=== PATIENT | female | born 1960 | race Caucasian/White ===

== ENCOUNTER 2022-12-14 09:34 | Emergency (ER) | payer MEDICARE, SELFPAY ==
[2022-12-14] VITALS (55 sets, daily range): BP systolic 158–198; BP diastolic 72–112; PULSE 90–117; RESP 16–36; O2SAT 90–98
--- NOTE | 2022-12-14 09:30 | DI.RAD_ITS ---
Exam(s) XR PORTABLE CHEST AP EXAM: XR PORTABLE CHEST AP CLINICAL HISTORY: SOB, PUI, Chest pain TECHNIQUE: 2D digital imaging was performed of the chest. One image was obtained. An AP view was ob tained. COMPARISON: No exams were available for comparison FINDINGS: MEDIASTINUM: Normal. HEART: Normal. PULMONARY VASCULATURE: Normal. LUNGS: There are bilateral basilar opacities. PLEURAL SPACE: No pneumothorax. Question of small bilateral pleural effusions. BONE:Within normal limits for the patient's age. OTHER FINDINGS:Normal. IMPRESSION: 1. Bilateral basilar opacities which may represent atelectasis or pneumonia. 2. Question of small bilateral pleural effusions. DATA REPOSITORY: RADIATION DOSE DELIVERED:
--- NOTE | 2022-12-14 09:30 | RT.EKG_ITS ---
APPROVED REPORT Exam: Resting ECG Reason for Exam: SOB Patient Location: E HR:116 bpm ECG Measurements Heart Rate 116 AXIS GA 149 P 72 QRSd 82 QRS 74 QT 333 T [id number] QTc 464 Conclusion Sinus tachycardia...rate> 99 Low voltage, precordial leads...precordial leads <1.0mV Nonspecific T abnormalities, lateral leads...T <-0.10mV, I aVL V5 V6
--- NOTE | 2022-12-14 09:45 | DI.CT_ITS ---
Exam(s) CT CHEST PE CTA EXAM: CT CHEST PE CTA CLINICAL HISTORY: Tachycardia, SOB, leg swelling. TECHNIQUE: Imaging Protocol: Axial CT angiography was performed with multi-slice acquisition and mu lti-planar and/or 3D reconstructions. CONTRAST MATERIAL: Intravenous: Omnipaque 350 contrast volume:100 mL COMPARISON: CR,XR XR PORTABLE CHEST AP from 12/14/2022 FINDINGS: The examination is limited due to patient motion artifact. Tracheobronchial tree: Patent where visualized. Pulmonary parenchyma: There are moderate bilateral pleural effusions and subjacent infiltrates in the lower lobes which may represent atelectasis or pneumonia. No architectural distortion. Pulmonary Arteries: No pulmonary embolus is seen to the level of the segmental pulmonary arteries. P atient motion artifact limits evaluation of the subsegmental pulmonary arteries. Mediastinum and Alisha: No dominant adenopathy or fluid collection. The esophagus is unremarkable. Visualized thyroid gland: Unremarkable. Pleura: No pneumothorax. Heart: The heart is not dilated. No coronary artery calcifications are seen. No pericardial effusion. Aorta: Thoracic aorta non-dilated. No evidence of dissection. Mild atherosclerosis. Upper abdomen: Unremarkable. Soft tissues: There is a well-circumscribed 1.7 cm soft tissue nodule in the subcutaneous tissues in the anterior chest wall. Bones: Within normal limits for the patient's age.Postsurgical changes are seen in the right humerus. IMPRESSION: 1. No evidence of pulmonary embolism, thoracic aortic dissection or aneurysm. 2. Moderate bilateral pleural effusions and basilar infiltrates which may represent atelectasis or pn eumonia. RADIATION DOSE DELIVERED: 692.83mGy.cm Total DLP DATA REPOSITORY: All CT scans at this facility are submitted to the National Radiology Data Registry (NRDR) Dose Index Registry (DIR) with the [employer] (ACR). RADIATION OPTIMIZATION: All CT scans at this facility use at least one of these dose optimization te chniques: automated exposure control; mA and/or kV adjustment per patient size (includes targeted exa ms where dose is matched to clinical indication); or iterative reconstruction.
--- NOTE | 2022-12-14 09:45 | W.ED.GENAD ---
Discharge Plan Disposition Patient Disposition: Transfer-Acute Inpatient Care Specific Acute Inpt Facility: [facility] Condition: Serious Discharge Details Clinical Impression: Non-ST elevation [place] (NSTEMI), CHF exacerbation, Bilateral pleural effusion Primary Care Provider: Amee,Local ED Provider: Terrence Gonzalez Medical Decision Making <Wen Sexton NP - Last Filed: 12/14/22 16:35> 62-year-old female presents to the ER via EMS with a chief complaint of bilateral lower extremity edema, shortness of breath and rectal pain. She reports that she has not taken her normal medications for approximately 3 months she is new to the area and does not have a PCP appointment till March. She does not normally wear oxygen at home. She does have a past medical history of CHF diabetes mellitus. Work-up ordered including CBC CMP serial troponins, proBNP due to leg swelling history of CHF, CT chest rule out PE pending labs. 0950: Placed on room air she is satting 93% at this time. 1008: O2 sat 93% heart rate 106. 1042: Critical troponin came back at 78, white blood cells 11.04 absolute neutrophils 8.64, glucose 175 proBNP 2502. COVID is pending at this time. Patient is in CT Aspirin 324 mg ordered 20 mg Lasix IV FRANCES's. Will consider Dutta. Dutta ordered, metoprolol 2.5 mg IV ordered, sublingual nitro 0.4 mg x 3 as needed pain and vital signs, patient placed back on 2 L nasal cannula. Repeat troponin and EKG will repeat now. 1237: [facility] [place] consult with cardiology. I did discuss admission with patient who verbalizes understanding. Repeat EKG shows no change from previous we will fax [place] [facility] [place] 1316: Repeat troponin 96 will order heparin drip for ACS protocol. Awaiting cardiology consult at [facility] [place] 1333: Upon patient re-evaluation patient is complaining of 4 out of 10 chest pressure she reports that her breathing is somewhat better after the Lasix she does have a liter of urine out in the Dutta. I did instruct the wait staff to give another sublingual Nitro. 1 g acetaminophen IV piggyback ordered. For headache. 1352: Dr. Rivera with [facility] [place] [place], they agree to accept patient for transfer. Accepting physician Dr. Tom, they recommend Plavix 600mg PO and Nitro gtt at 10mcg/min. Orders placed. Will discuss plan of care with patient. Patient verbalized understanding is in agreement with the transfer to [facility] [place] Bed assignment received EMTALA form filled out. Nitro is infusing without difficulty, heparin drip also infusing without difficulty. Care is to be handed off to oncoming provider Brandon Gonzalez pending transfer [place] [facility] [place] At the time of this dictation patient is in hemodynamically stable condition alert and oriented. She is complaining of a headache. This text was generated using [employer] system, please disregard any oddities of phrase or misspellings. Medical Records Medical records reviewed: Yes I reviewed the patient's medical records. Imaging Data Radiologic Study: Imaging: CT Scan Radiologist's impression: COMPARISON: CR XR PORTABLE CHEST AP 12/14/2022 10:25 AM FINDINGS: Tubes, catheters and devices: Surgical device in the right humeral head Pulmonary arteries: No pulmonary embolus in the main pulmonary arteries. Aorta: Unremarkable. No aortic aneurysm. No aortic dissection. Lungs: Opacities in the lower lobes may represent atelectasis or pneumonia.. Pleural spaces: Moderate bilateral pleural effusions. Heart: Unremarkable. No cardiomegaly. No pericardial effusion. Lymph nodes: Unremarkable. No enlarged lymph nodes. Bones/joints: Unremarkable. No acute fracture. Soft tissues: 14 mm soft tissue nodule in the subcutaneous fat anteriorly in the midline series 4, image 20 IMPRESSION: 1. Moderate bilateral pleural effusions. 2. No pulmonary embolus in the main pulmonary arteries. 3. Opacities in the lower lobes may represent atelectasis or pneumonia.. Thank you for allowing us to participate in the care of your patient. Dictated and Authenticated by: Bety Martin MD Lab Data Lab results reviewed: Yes I reviewed the patient's lab results. Labs: 12/14/22 11:50 Blood Blood Culture - Pending 12/14/22 11:18 Blood Blood Culture - Pending Laboratory Tests Range/Units 12/14/22 12/14/22 12/14/22 09:58 09:58 09:58 WBC (4.4-10.8) 10^3/uL 11.04 H RBC (3.93-5.22) 10^6/uL 4.56 Hgb (11.2-15.7) g/dL 13.1 Hct (36.0-46.0) % 40.3 MCV (80-95) fL 88 MCH (27.0-33.0) pg 28.7 MCHC (32.0-36.0) % 32.5 RDW (11.7-14.6) % 15.1 H Plt Count (130-400) 10^3/uL 374 MPV (8.0-11.0) fL 9.6 Immature Gran % 0.5 Neutrophils % 78.3 Lymphocytes % 14.1 Monocytes % 4.4 Eosinophils % 2.2 Basophils % 0.5 Nucleated RBC % (0.0-0.3) % 0.0 Absolute Neutrophils (1.2-6.7) 10^3/uL 8.64 H Absolute Lymphocytes (1.2-3.4) 10^3/uL 1.56 Absolute Monocytes (0.1-0.8) 10^3/uL 0.49 Absolute Eosinophils (0.0-0.7) 10^3/uL 0.24 Absolute Basophils (0.0-0.2) 10^3/uL 0.06 PT (9.3-11.0) sec INR (0.9-1.1) APTT (21.5-31.9) sec VBG pH (7.31-7.41) 7.43 H VBG pCO2 (41-51) mmHg 38 L VBG pO2 mmHg 41 VBG HCO3 (23-28) mmol/L 25 VBG Total CO2 (24-29) mmol/L 23 L VBG O2 Saturation % 76 VBG Base Excess (-2-3) mmol/L 1 Sodium (136-145) mmol/L 141 Potassium (3.5-5.1) mmol/L 3.5 Chloride (98-107) mmol/L 104 Carbon Dioxide (21.0-32.0) mmol/L 25.7 Anion Gap (3-11) mmol/L 11.3 H BUN (7-18) mg/dL 11 Creatinine (0.55-1.02) mg/dL 0.9 Est GFR (CKD-EPI 2020) (mL/min/1.73m2) 72.73 Glucose (74-106) mg/dL 175 H Calcium (8.5-10.1) mg/dL 8.7 Total Bilirubin (0.2-1.0) mg/dL 0.5 AST (15-37) U/L 18 ALT (14-59) U/L 16 Alkaline Phosphatase (46-116) U/L 135 H Troponin I (<or=60) ng/L 78 H* NT-Pro-B Natriuret Pep (<300) pg/mL 2502 H Total Protein (6.4-8.2) g/dL 7.9 Albumin (3.4-5.0) g/dL 3.4 Urine Color (Yellow) Urine Clarity (Clear) Urine pH (5-8) Ur Specific [place] (1.005-1.025) Urine Protein (Negative) mg/dL Urine Ketones (Negative) mg/dL Urine Blood (Negative) Urine Nitrite (Negative) Urine Bilirubin (Negative) Urine Urobilinogen (Up to 0.2) mg/dL Ur Leukocyte Esterase (Negative) Urine RBC (0-2) HPF Urine WBC (0-5) HPF Ur Epithelial Cells (Negative) HPF Urine Crystals (Negative) HPF Urine Bacteria (Negative) HPF Urine Casts (Negative) LPF Urine Mucus (Negative) Ur Culture Indicated? Urine Glucose (Negative) mg/dL COVID-19 Source SARS-CoV-2 (PCR) (Negative) Range/Units 12/14/22 12/14/22 12/14/22 09:58 10:24 11:38 WBC (4.4-10.8) 10^3/uL RBC (3.93-5.22) 10^6/uL Hgb (11.2-15.7) g/dL Hct (36.0-46.0) % MCV (80-95) fL MCH (27.0-33.0) pg MCHC (32.0-36.0) % RDW (11.7-14.6) % Plt Count (130-400) 10^3/uL MPV (8.0-11.0) fL Immature Gran % Neutrophils % Lymphocytes % Monocytes % Eosinophils % Basophils % Nucleated RBC % (0.0-0.3) % Absolute Neutrophils (1.2-6.7) 10^3/uL Absolute Lymphocytes (1.2-3.4) 10^3/uL Absolute Monocytes (0.1-0.8) 10^3/uL Absolute Eosinophils (0.0-0.7) 10^3/uL Absolute Basophils (0.0-0.2) 10^3/uL PT (9.3-11.0) sec 9.9 INR (0.9-1.1) 1.0 APTT (21.5-31.9) sec 26.2 VBG pH (7.31-7.41) VBG pCO2 (41-51) mmHg VBG pO2 mmHg VBG HCO3 (23-28) mmol/L VBG Total CO2 (24-29) mmol/L VBG O2 Saturation % VBG Base Excess (-2-3) mmol/L Sodium (136-145) mmol/L Potassium (3.5-5.1) mmol/L Chloride (98-107) mmol/L Carbon Dioxide (21.0-32.0) mmol/L Anion Gap (3-11) mmol/L BUN (7-18) mg/dL Creatinine (0.55-1.02) mg/dL Est GFR (CKD-EPI 2020) (mL/min/1.73m2) Glucose (74-106) mg/dL Calcium (8.5-10.1) mg/dL Total Bilirubin (0.2-1.0) mg/dL AST (15-37) U/L ALT (14-59) U/L Alkaline Phosphatase (46-116) U/L Troponin I (<or=60) ng/L NT-Pro-B Natriuret Pep (<300) pg/mL Total Protein (6.4-8.2) g/dL Albumin (3.4-5.0) g/dL Urine Color (Yellow) Yellow Urine Clarity (Clear) Clear Urine pH (5-8) 7.0 Ur Specific [place] (1.005-1.025) 1.015 Urine Protein (Negative) mg/dL 100 H Urine Ketones (Negative) mg/dL 40 H Urine Blood (Negative) Trace-lysed H Urine Nitrite (Negative) Negative Urine Bilirubin (Negative) Negative Urine Urobilinogen (Up to 0.2) mg/dL 0.2 Ur Leukocyte Esterase (Negative) Negative Urine RBC (0-2) HPF 5-10 H Urine WBC (0-5) HPF 0-2 Ur Epithelial Cells (Negative) HPF Few Urine Crystals (Negative) HPF Negative Urine Bacteria (Negative) HPF Negative Urine Casts (Negative) LPF Negative Urine Mucus (Negative) Trace Ur Culture Indicated? No Urine Glucose (Negative) mg/dL Negative COVID-19 Source Nasal/Nares SARS-CoV-2 (PCR) (Negative) Negative Range/Units 12/14/22 12:40 WBC (4.4-10.8) 10^3/uL RBC (3.93-5.22) 10^6/uL Hgb (11.2-15.7) g/dL Hct (36.0-46.0) % MCV (80-95) fL MCH (27.0-33.0) pg MCHC (32.0-36.0) % RDW (11.7-14.6) % Plt Count (130-400) 10^3/uL MPV (8.0-11.0) fL Immature Gran % Neutrophils % Lymphocytes % Monocytes % Eosinophils % Basophils % Nucleated RBC % (0.0-0.3) % Absolute Neutrophils (1.2-6.7) 10^3/uL Absolute Lymphocytes (1.2-3.4) 10^3/uL Absolute Monocytes (0.1-0.8) 10^3/uL Absolute Eosinophils (0.0-0.7) 10^3/uL Absolute Basophils (0.0-0.2) 10^3/uL PT (9.3-11.0) sec INR (0.9-1.1) APTT (21.5-31.9) sec VBG pH (7.31-7.41) VBG pCO2 (41-51) mmHg VBG pO2 mmHg VBG HCO3 (23-28) mmol/L VBG Total CO2 (24-29) mmol/L VBG O2 Saturation % VBG Base Excess (-2-3) mmol/L Sodium (136-145) mmol/L Potassium (3.5-5.1) mmol/L Chloride (98-107) mmol/L Carbon Dioxide (21.0-32.0) mmol/L Anion Gap (3-11) mmol/L BUN (7-18) mg/dL Creatinine (0.55-1.02) mg/dL Est GFR (CKD-EPI 2020) (mL/min/1.73m2) Glucose (74-106) mg/dL Calcium (8.5-10.1) mg/dL Total Bilirubin (0.2-1.0) mg/dL AST (15-37) U/L ALT (14-59) U/L Alkaline Phosphatase (46-116) U/L Troponin I (<or=60) ng/L 96 H* NT-Pro-B Natriuret Pep (<300) pg/mL Total Protein (6.4-8.2) g/dL Albumin (3.4-5.0) g/dL Urine Color (Yellow) Urine Clarity (Clear) Urine pH (5-8) Ur Specific [place] (1.005-1.025) Urine Protein (Negative) mg/dL Urine Ketones (Negative) mg/dL Urine Blood (Negative) Urine Nitrite (Negative) Urine Bilirubin (Negative) Urine Urobilinogen (Up to 0.2) mg/dL Ur Leukocyte Esterase (Negative) Urine RBC (0-2) HPF Urine WBC (0-5) HPF Ur Epithelial Cells (Negative) HPF Urine Crystals (Negative) HPF Urine Bacteria (Negative) HPF Urine Casts (Negative) LPF Urine Mucus (Negative) Ur Culture Indicated? Urine Glucose (Negative) mg/dL COVID-19 Source SARS-CoV-2 (PCR) (Negative) <Hussein Keating MD - Last Filed: 12/14/22 18:36> Date: 12/14/22 Time: 14:21 Note: Patient seen, examined, and discussed with NORA Sexton. I agree with treatment plan as discussed/documented. EKG was reviewed and interpreted by me: Please see report. Patient with NSTEMI and CHF. Chest pain improved with sublingual nitroglycerin. Plan to treat with heparin drip and nitroglycerin infusion. NORA Sexton arranging for [place] [facility] [place] and [place]. HPI <Wen Sexton NP - Last Filed: 12/14/22 16:35> General Mode of arrival: EMS. Date/Time Provider Initiated Documentation: 12/14/22 09:43. Limitations to Documentation: no limitations. Information obtained by: patient, EMS, RN notes reviewed and old records reviewed. HPI Narrative: 62-year-old female presents to the ER via EMS with a chief complaint of bilateral lower extremity edema, shortness of breath and rectal pain. She reports that she has not taken her normal medications for approximately 3 months she is new to the area and does not have a PCP appointment till March. She does not normally wear oxygen at home. She does have a past medical history of CHF diabetes mellitus. Related Data Allergies Allergy/AdvReac Type Severity Reaction Status Date / Time Penicillins Allergy Intermediate Hives Unverified 12/14/22 09:44 codeine Allergy Unknown Unverified 12/14/22 09:44 divalproex sodium AdvReac Severe Agitation Unverified 12/14/22 09:44 [facility] General Stated Complaint: RespSymp KARINA: 3 Review of Systems <Wen Sexton NP - Last Filed: 12/14/22 16:35> All systems reviewed & are unremarkable except as noted in HPI and below Cardiovascular Cardiovascular: Reports chest pain, Reports leg edema, Reports dyspnea, Reports dyspnea on exertion and Reports orthopnea Respiratory Respiratory: Reports dyspnea and Reports dyspnea on exertion Gastrointestinal Gastrointestinal: Denies abdominal pain, Denies diarrhea, Denies nausea and Denies vomiting PFSH <Wen Sexton NP - Last Filed: 12/14/22 16:35> All Active Problems (Updated 12/14/22 @ 16:35 by Wen Sexton NP) Non-ST elevation [place] (NSTEMI) (Acute) CHF exacerbation (Acute) Bilateral pleural effusion (Acute) Social History Smoking/Tobacco Use Status: Never Smoking risk assessment performed?: Yes Alcohol Intake: current Drug use: Never Substance use type: does not use Housing: house Do you feel safe at home: Yes Do you feel safe in your relationship?: Yes Exam <Wen Sexton NP - Last Filed: 12/14/22 16:35> Narrative Exam Narrative: Constitutional: Alert and oriented x3. Appears stated age. Obese body habitus. Head: Normocephalic, no trauma. Eyes: Pupils PERRL, Red reflex noted, EOM's intact. Eyelids symmetrical without lesions, discharge, or swelling. ENT: Bilateral TM's WNL, External ear normal to inspection, no mastoid TTP, swelling, or erythema, Nasal turbinates WNL, no nasal discharge. poor dentition, Posterior pharynx WNL, no exudate. Dry mucous membranes Chest: Tachycardia with occasional PVCs, EKG shows no STEMI Resp: Lungs diminished bilaterally, no wheezes, rales, or rhonchi. Abdomen: Soft, non-distended, Normoactive bowel sounds all 4 quads. Musculoskeletal: Unable to assess gait nonpitting edema noted to her lower extremities, she does have some sores noted to her left anterior leo Skin: Capillary refill less than 2 sec. Neurologic: Cranial nerves II-XII intact. Alert and oriented x 3. Motor: No deficits noted. Sensory: Intact bilaterally all 4 extremities. Reflexes: DTR's intact bilaterally.. Hematologic/Lymphatic: No ecchymosis, no lymphadenopathy. Course <Wen Sexton NP - Last Filed: 12/14/22 16:35> Vital Signs Vital signs: Vital Signs Pulse 117 H 12/14/22 09:37 Respiratory Rate 17 12/14/22 09:37 Blood Pressure 158/112 H 12/14/22 09:37 Pulse Oximetry 95 12/14/22 09:37 Pulse 117 H 12/14/22 09:37 Respiratory Rate 17 12/14/22 09:37 Blood Pressure 158/112 H 12/14/22 09:37 Blood Pressure Position Sitting 12/14/22 09:37 Pulse Oximetry 95 12/14/22 09:37 Oxygen Delivery Method Nasal Cannula 12/14/22 09:37 Oxygen Flow Rate 2 12/14/22 09:37 Pain Level 7 12/14/22 09:37 Critical Care Time <Wen Sexton NP - Last Filed: 12/14/22 16:35> Critical Care Time Critical Care Time: Yes Total Critical Care Time: 120 Attestation: I spent greater than 35 minutes addressing this patient's acute life threatening illness. This time was spent engaged in actions directly related to the patient's care. Failure to initiate these interventions would have likely resulted in clinically significant or life threatening deterioration in the patients condition. Sign Out <Wen Sexton NP - Last Filed: 12/14/22 16:35> Sign Out Data: Sign Out Comment: 62-year-old female with a history of CHF diabetes mellitus and CAD presents with shortness of breath, leg swelling and chest pain after not taking any of her normal medications for the last 3 months. She recently moved here from [place] was unable to [facility]. NSTEMI, on nitro drip at 10 mics per minute and heparin drip at 1000 units an hour. P[place] [facility] [place]. Last updated by Wen Sexton NP at 12/14/22 15:44
[2022-12-14 10:02] LABS: BE (Venous) 1 mmol/L (-2-3); HCO3 (Venous) 25 mmol/L (23-28); O2 Sat (Venous) 76 %; TCO2 (Venous) 23 mmol/L (24-29); pCO2 (Venous) 38 mmHg (41-51); pH (Venous) 7.43 (7.31-7.41); pO2 (Venous) 41 mmHg
[2022-12-14 10:06] LABS: Abs Immature Grans 0.05 10^3/uL (0.0-0.06); Absolute Basophil Count 0.06 10^3/uL (0.0-0.2); Absolute Eosinophil Count 0.24 10^3/uL (0.0-0.7); Absolute Lymphocyte Count 1.56 10^3/uL (1.2-3.4); Absolute Monocyte Count 0.49 10^3/uL (0.1-0.8); Absolute Neutrophil Count 8.64 10^3/uL (1.2-6.7); Basophils % 0.5; Eosinophils % 2.2; HCT 40.3 % (36.0-46.0); HGB 13.1 g/dL (11.2-15.7); Immature Grans % 0.5; Lymphocytes % 14.1; MCH 28.7 pg (27.0-33.0); MCHC 32.5 % (32.0-36.0); MCV 88 fL (80-95); MPV 9.6 fL (8.0-11.0); Monocytes % 4.4; Neutrophils % 78.3; Platelet Count 374 10^3/uL (130-400); RBC 4.56 10^6/uL (3.93-5.22); RDW 15.1 % (11.7-14.6); RDW-SD 48.1 fL; WBC 11.04 10^3/uL (4.4-10.8)
[2022-12-14 10:28] LABS: ALT 16 U/L (14-59); AST 18 U/L (15-37); Albumin 3.4 g/dL (3.4-5.0); Alkaline Phosphatase 135 U/L (46-116); Anion Gap 11.3 mmol/L (3-11); BUN 11 mg/dL (7-18); Bilirubin, Total 0.5 mg/dL (0.2-1.0); CO2 25.7 mmol/L (21.0-32.0); CREATININE 0.9 mg/dL (0.55-1.02); Calcium 8.7 mg/dL (8.5-10.1); Chloride 104 mmol/L (98-107); Estimated GFR 72.73 (mL/min/1.73m2); Glucose 175 mg/dL (74-106); NT-proBNP 2502 pg/mL (<300); Potassium 3.5 mmol/L (3.5-5.1); Sodium 141 mmol/L (136-145); Total Protein 7.9 g/dL (6.4-8.2)
[2022-12-14 10:30] LABS: Source Nasal/Nares
[2022-12-14 10:31] LABS: Troponin I 78 ng/L (<or=60)
--- NOTE | 2022-12-14 10:32 | DI.VRAD_ITS ---
PROCEDURE INFORMATION: Exam: XR Chest Exam date and time: 12/14/2022 10:25 AM Age: 62 years old Clinical indication: Shortness of breath and other: Chest pain TECHNIQUE: Imaging protocol: Radiologic exam of the chest. Views: 1 view. COMPARISON: No relevant prior studies available. FINDINGS: Lungs: Opacities in both bases may represent atelectasis or pneumonia.. Pleural spaces: There may be mild left pleural effusion.. Heart/Mediastinum: Unremarkable. No cardiomegaly. Bones/joints: Unremarkable. IMPRESSION: 1. Opacities in both bases may represent atelectasis or pneumonia.. 2. There may be mild left pleural effusion.. Dictated and Authenticated by: Bety Martin MD. Ordering:SHAJI Carver MD
[2022-12-14] MEDS: Normal Saline - Diluent 50 ML VIAL IJ (11:01)
[2022-12-14] MEDS: Omnipaque 350 MG/ML 100 ML BTL IJ (11:01)
[2022-12-14 11:05] LABS: COVID-19 PCR Negative (Negative)
[2022-12-14] MEDS: Furosemide 20 MG/2 ML VIAL IVP (11:11)
[2022-12-14] MEDS: Aspirin 81 MG CHEW 324 MG CH (11:11)
--- NOTE | 2022-12-14 11:22 | DI.VRAD_ITS ---
PROCEDURE INFORMATION: Exam: CTA Chest With Contrast Exam date and time: 12/14/2022 10:55 AM Age: 62 years old Clinical indication: Shortness of breath TECHNIQUE: Imaging protocol: Computed tomographic angiography of the chest with contrast. Exam focused on the arteries. 3D rendering (Not supervised by radiologist): MIP and/or 3D reconstructed images were created by the technologist. COMPARISON: CR XR PORTABLE CHEST AP 12/14/2022 10:25 AM FINDINGS: Tubes, catheters and devices: Surgical device in the right humeral head Pulmonary arteries: No pulmonary embolus in the main pulmonary arteries. Aorta: Unremarkable. No aortic aneurysm. No aortic dissection. Lungs: Opacities in the lower lobes may represent atelectasis or pneumonia.. Pleural spaces: Moderate bilateral pleural effusions. Heart: Unremarkable. No cardiomegaly. No pericardial effusion. Lymph nodes: Unremarkable. No enlarged lymph nodes. Bones/joints: Unremarkable. No acute fracture. Soft tissues: 14 mm soft tissue nodule in the subcutaneous fat anteriorly in the midline series 4, image 20 IMPRESSION: 1. Moderate bilateral pleural effusions. 2. No pulmonary embolus in the main pulmonary arteries. 3. Opacities in the lower lobes may represent atelectasis or pneumonia.. Dictated and Authenticated by: Bety Martin MD. Ordering:SHAJI Carver MD
[2022-12-14 11:44] LABS: PTT Activated 26.2 sec (21.5-31.9); Prothrombin Time 9.9 sec (9.3-11.0)
[2022-12-14 12:03] LABS: Bilirubin Negative (Negative); Blood Trace-lysed (Negative); Clarity Clear (Clear); Glucose Negative (Negative); Ketones 40 mg/dL (Negative); Leukocyte Esterase Negative (Negative); Nitrite Negative (Negative); Specific Gravity 1.015 (1.005-1.025); Urobilinogen 0.2 mg/dL (Up to 0.2)
[2022-12-14 12:14] LABS: Bacteria Negative HPF (Negative); C & S Indicated? No; Casts Negative LPF (Negative); Crystals Negative HPF (Negative); Epithelial Cells Few HPF (Negative); Mucus Trace (Negative); WBC 0-2 HPF (0-5)
--- NOTE | 2022-12-14 12:15 | RT.EKG_ITS ---
APPROVED REPORT Exam: Resting ECG Reason for Exam: Repeat Patient Location: E HR:102 bpm ECG Measurements Heart Rate 102 AXIS MS 156 P 51 QRSd 82 QRS 71 QT 404 T 46 QTc 527 Conclusion Sinus tachycardia...rate> 99 Low voltage, precordial leads...precordial leads <1.0mV Prolonged QT interval...QTc >500mS
[2022-12-14] MEDS: Metoprolol 5 MG/5 ML VIAL 2.5 MG IVP ×2 (12:21→17:53)
[2022-12-14] MEDS: nitroGLYcerin 0.4 MG TAB SL ×3 (12:31→13:40)
[2022-12-14 13:12] LABS: Troponin I 96 ng/L (<or=60)
[2022-12-14] MEDS: Heparin in 0.45% NaCl 25,000 UNIT/250 ML BAG 10 UNIT IV (13:52)
[2022-12-14] MEDS: ACETAMINOPHEN 1,000 MG/100 ML BTL 400 MG IVPB (13:54)
[2022-12-14] MEDS: nitroGLYcerin in D5W 50 MG/250 ML BTL IV (14:30)
[2022-12-14] MEDS: Normal Saline 1,000 ML 50 ML IV (14:31)
[2022-12-14] MEDS: Clopidogrel 300 MG TAB 600 MG PO (14:32)
[2022-12-14] MEDS: MORPHine 10 MG/ML VIAL 2 MG IVP (14:58)
--- NOTE | 2022-12-14 17:00 | DI.CT_ITS ---
Exam(s) CT HEAD WO EXAM: CT HEAD WO CLINICAL HISTORY: headache. TECHNIQUE: Imaging Protocol: Axial computed tomography images with coronal and sagittal reformatted images were created and reviewed COMPARISON: No exams were available for comparison FINDINGS: Ventricles and Extra axial spaces: Normal in size and morphology for the patient's age. Hemorrhage: None. Cerebral parenchyma: Normal. Midline shift: None. Brainstem/Cerebellum: Normal. Calvarium: Normal. Visualized Paranasal sinuses/Mastoids: The mucous retention cyst or polyp in the right maxillary sinu s. Soft Tissues: Unremarkable. IMPRESSION: No acute intracranial process. RADIATION DOSE DELIVERED: 724.53mGy.cm Total DLP DATA REPOSITORY: All CT scans at this facility are submitted to the National Radiology Data Registry (NRDR) Dose Index Registry (DIR) with the [employer] ([employer]). RADIATION OPTIMIZATION: All CT scans at this facility use at least one of these dose optimization te chniques: automated exposure control; mA and/or kV adjustment per patient size (includes targeted exa ms where dose is matched to clinical indication); or iterative reconstruction.
--- NOTE | 2022-12-14 17:14 | ED.PROG_ITS ---
Date of service: 12/14/22 Time of Service: 16:00 Medical Decision Making 1600-received signout from Meaghan Sexton NP and patient stable pending [place] [facility] Patient resting comfortably in bed at time of signout 1704-patient reported to nursing staff that she started having a worsening headache. Patient was a soft and shows no focal neurological findings but given that she is on heparin and complaining of headache with also note of pressure going up we will have the patient's CT scanning of head performed and will also have staff development coordinator rn increase nitro. 1745-reviewed CT imaging and I do not see any obvious intracranial bleed secondary to an anticoagulation. Nitro was increased to 50 mics but still not controlling patient's pressure so 2.5 mg of Lopressor was ordered. Also patient did receive small dose of Versed to help with CT imaging. Patient transferred with EMS and critical care transport nurse. Patient remained in stable condition with no significant signs of worsening at time of transfer. Lab Data Lab results reviewed: Yes I reviewed the patient's lab results. Sign Out Sign Out Data: Sign Out Comment: 62-year-old female with a history of CHF diabetes mellitus and CAD presents with shortness of breath, leg swelling and chest pain after not taking any of her normal medications for the last 3 months. She recently moved here from [place] state was unable to get [facility]. NSTEMI, on nitro drip at 10 mics per minute and heparin drip at 1000 units an hour. Pending transfer [place] [facility] [place]. Last updated by Wen Sexton NP at 12/14/22 15:44 Discharge Plan Disposition Patient Disposition: Transfer-Acute Inpatient Care Specific Acute In Facility: [facility] Condition: Serious Discharge Details Clinical Impression: Non-ST elevation [place] (NSTEMI), CHF exacerbation, Bilateral pleural effusion Primary Care Provider: Amee,Local ED Provider: Terrence Gonzalez Discharge Data Discharge Date/Time-TO BE ENTERED AT DEPARTURE: 12/14/22 18:10
[2022-12-14] MEDS: Midazolam 2 MG/2 ML VIAL 1 MG IVP (17:30)
--- NOTE | 2022-12-14 17:53 | DI.VRAD_ITS ---
PROCEDURE INFORMATION: Exam: CT Head Without Contrast Exam date and time: 12/14/2022 5:17 PM Age: 62 years old Clinical indication: Pain; Headache TECHNIQUE: Imaging protocol: Computed tomography of the head without contrast. COMPARISON: No relevant prior studies available. FINDINGS: Brain: Normal. No hemorrhage. Unremarkable white matter. No mass effect. Cerebral ventricles: No ventriculomegaly. Paranasal sinuses: Polyp or retention cyst in the right maxillary sinus Mastoid air cells: Visualized mastoid air cells are well aerated. Bones/joints: Unremarkable. No acute fracture. Soft tissues: Unremarkable. IMPRESSION: No acute intracranial hemorrhage Dictated and Authenticated by: Bety Martin MD. Ordering:VIDA Ocampo MD
--- NOTE | 2022-12-14 20:59 | NUR.NOTE ---
Nursing Note: 1744: This RN arrived to get report on patient and orders from David Gonzalez NP and Piyush Spencer RN to prepare for transport with [facility]'s. Pt sleepy but arousable and appropriate. Denies Chest pain and shortness of breath. C/O 10/10 headache; on Ntg and Heparin infusions; has received previous meds (SEE JUN). Pt moved to EMS stretcher and secured. VSS at start of transfer were HR 97, BP 175/97, RR 29, O2sat 94% on 2 Lpm via NC, Sinus rhythm on the monitor. Patient rested most of ride, occasional PVC's seen. Pt arrived [place] [facility] with little change, now feels nauseated and like headache is worsening. Report given to receiving team who will have accepting MD manage new orders. Last set of Vital signs before transfer: HR 99, BP 175/92, RR 30, O sat 93% on 2 lpm via NC.
--- NOTE | 2022-12-14 21:36 | NUR.NOTE ---
Nursing Note: this RN found Patient's glasses in room after patient DCed to [facility]. Glasses labeled and place in Lost and found in utility room
== END 2022-12-14 18:10 | disposition short-term general hospital (02) ==
PROVIDERS: Registered Nurse Emergency; Emergency Provider Nurse Practitioner Family
DX: I21.4 Non-ST elevation (NSTEMI) myocardial infarction (principal); I50.9 Heart failure, unspecified; J90 Pleural effusion, not elsewhere classified; E11.9 Type 2 diabetes mellitus without complications; I25.10 Atherosclerotic heart disease of native coronary artery without angina pectoris; R94.31 Abnormal electrocardiogram [ECG] [EKG]; Z91.148 Patient's other noncompliance with medication regimen for other reason; Z20.822 Contact with and (suspected) exposure to COVID-19
CPT/HCPCS: 36415; 71275; 80053; 82805; 87040; 87635; 93005; 96365; 96366; 96375; 96376; 99291; 70450; 71045; 81003; 81015; 83880; 84484; 85025; 85610; 85730; 93010; J0131; J1170; J1941; J2250; J2270; J3490

== ENCOUNTER 2023-02-06 04:14 | Outpatient (CLI) | payer MEDICARE, SELFPAY ==
[2023-02-06 10:43] LABS: ALT 17 U/L (14-59); AST 12 U/L (15-37); Albumin 3.8 g/dL (3.4-5.0); Alkaline Phosphatase 159 U/L (46-116); Anion Gap 8.3 mmol/L (3-11); BUN 26 mg/dL (7-18); Bilirubin, Total 0.2 mg/dL (0.2-1.0); CO2 29.7 mmol/L (21.0-32.0); CREATININE 1.2 mg/dL (0.55-1.02); Calcium 9.3 mg/dL (8.5-10.1); Calculated LDL 72 mg/dL (<100); Chloride 101 mmol/L (98-107); Cholesterol 187 mg/dL (<200); Glucose 163 mg/dL (74-106); HDL Cholesterol 46 mg/dL (40-60); Sodium 139 mmol/L (136-145); Total Protein 8.6 g/dL (6.4-8.2); Triglyceride 345 mg/dL (<150); Vitamin B12 382 pg/mL (193-986)
[2023-02-06 10:53] LABS: Vitamin D 25 Total 27.4 ng/mL (30-100)
== END 2023-02-06 04:15 | disposition home or self-care (01) ==
LOC: LOS 04:15
PROVIDERS: Visit Provider Nurse Practitioner Family
DX: I10 Essential (primary) hypertension (principal); Z51.81 Encounter for therapeutic drug level monitoring; E78.5 Hyperlipidemia, unspecified; I77.1 Stricture of artery; E11.9 Type 2 diabetes mellitus without complications
CPT/HCPCS: 36415; 80053; 80061; 82306; 82607

== ENCOUNTER 2023-03-04 16:53 | Outpatient (REF) | payer MEDICARE, SELFPAY ==
[2023-03-07 22:32] LABS: Desipramine, S 67 ng/mL (100-300)
== END 2023-03-04 16:54 | disposition home or self-care (01) ==
LOC: NCHCN 16:53
PROVIDERS: PCP Nurse Practitioner Family; Visit Provider Nurse Practitioner Psychiatric/Mental Health
DX: Z51.81 Encounter for therapeutic drug level monitoring (principal)
CPT/HCPCS: 80335

== ENCOUNTER 2023-03-25 14:10 | Outpatient (CLI) | payer MEDICARE, MEDICAID, SELFPAY ==
--- NOTE | 2023-03-25 13:45 | DI.RAD_ITS ---
Exam(s) XR SHOULDER RT COMPLETE 2+V EXAM: XR SHOULDER RT COMPLETE 2+V CLINICAL HISTORY: RIGHT SHOULDER PAIN. TECHNIQUE: 2D digital imaging was performed. Five views. COMPARISON: No exams were available for comparison FINDINGS: BONES: No acute fracture is present. No bony destructive lesion is seen. Metallic anchors in humeral head. Subchondral cysts and mild spurring at greater tuberosity. JOINTS: No dislocation present. Glenohumeral joint space is maintained. AC joint shows mild spurring. Spurring at the undersurface of the acromion. SOFT TISSUE: Normal. IMPRESSION: Postsurgical changes. Mild degenerative changes. DATA REPOSITORY: RADIATION DOSE DELIVERED:
== END 2023-03-25 14:11 | disposition home or self-care (01) ==
LOC: DIORS 14:10
PROVIDERS: PCP Nurse Practitioner Family; Referring Provider Nurse Practitioner Family; Visit Provider Student in an Organized Health Care Education/Training Program
DX: M25.511 Pain in right shoulder (principal); M75.101 Unspecified rotator cuff tear or rupture of right shoulder, not specified as traumatic
CPT/HCPCS: 99213; 73030

== ENCOUNTER 2023-03-25 14:33 | Outpatient (CLI) | payer MEDICARE, SELFPAY ==
[2023-03-25 15:01] LABS: Abs Immature Grans 0.05 10^3/uL (0.0-0.06); Absolute Basophil Count 0.06 10^3/uL (0.0-0.2); Absolute Eosinophil Count 0.41 10^3/uL (0.0-0.7); Absolute Lymphocyte Count 2.73 10^3/uL (1.2-3.4); Absolute Monocyte Count 0.81 10^3/uL (0.1-0.8); Absolute Neutrophil Count 6.53 10^3/uL (1.2-6.7); Basophils % 0.6; Eosinophils % 3.9; HGB 13.7 g/dL (11.2-15.7); Immature Grans % 0.5; Lymphocytes % 25.8; MCH 28.9 pg (27.0-33.0); MCHC 31.9 % (32.0-36.0); MCV 91 fL (80-95); MPV 9.6 fL (8.0-11.0); Monocytes % 7.6; Neutrophils % 61.6; Platelet Count 318 10^3/uL (130-400); RBC 4.74 10^6/uL (3.93-5.22); RDW 15.1 % (11.7-14.6); RDW-SD 50.4 fL; WBC 10.59 10^3/uL (4.4-10.8)
[2023-03-25 15:06] LABS: ESR 27 mm/hr (0-30)
[2023-03-25 15:32] LABS: C-Reactive Protein 0.92 mg/dL (0.0-0.3)
== END 2023-03-25 14:34 | disposition home or self-care (01) ==
LOC: LBO 14:34
PROVIDERS: PCP Nurse Practitioner Family; Visit Provider Student in an Organized Health Care Education/Training Program
DX: M75.101 Unspecified rotator cuff tear or rupture of right shoulder, not specified as traumatic (principal)
CPT/HCPCS: 36415; 85652; 85025; 86140

== ENCOUNTER → 2023-04-10 00:26 | Outpatient (CLI) | payer MEDICARE, MEDICAID, SELFPAY ==
--- NOTE | 2023-04-10 13:50 | DI.MRI_ITS ---
Exam(s) MR UPPER JOINT RT WO EXAM: MR UPPER JOINT RT WO CLINICAL HISTORY: R RTC REPAIR 04/04,NEW RT ROTATOR CUFF TEAR,M75.101. TECHNIQUE: Multiplanar multisequence MRI was performed. COMPARISON: Plain films 25 March 2023 FINDINGS: Exam somewhat limited by patient body habitus. BONES: There is no fracture or contusion pattern. Metallic anchors humeral head related to prior ro tator cuff repair. JOINTS:The acromioclavicular joint shows mild spurring. Fluid within the AC joint. The glenohumeral joint is normal. TENDONS: Supraspinatus: Non full-thickness tear with retraction of the anterior half of the supraspinatus tend on. Remaining supraspinatus tendon shows thickening and abnormal high signal consistent with tendino sis. Infraspinatus: Unremarkable. Subscapularis: Unremarkable. Teres Minor: Unremarkable. Biceps and [place]: Some thickening of proximal biceps tendon but no visible tear MUSCLES: Moderate supraspinatus muscle atrophy. GLENOID LABRUM: Unremarkable on this noncontrast examination. SOFT TISSUES: Unremarkable. OTHER: Subacromial and subdeltoid bursae shows a small amount of fluid.. IMPRESSION: Supraspinatus tendinosis with full-thickness tear and retraction of the anterior half of the tendon. Moderate muscle atrophy. Tendinosis of the proximal biceps tendon. DATA REPOSITORY:
== END ==
PROVIDERS: PCP Nurse Practitioner Family; Visit Provider Student in an Organized Health Care Education/Training Program
DX: M75.121 Complete rotator cuff tear or rupture of right shoulder, not specified as traumatic (principal)
CPT/HCPCS: 73221

== ENCOUNTER → 2023-04-15 13:50 | Outpatient (BNVA) | payer MEDICARE, MEDICAID, SELFPAY | PROVIDERS: PCP Nurse Practitioner Family; Referring Provider Nurse Practitioner Family; Visit Provider Student in an Organized Health Care Education/Training Program | DX: M75.101 Unspecified rotator cuff tear or rupture of right shoulder, not specified as traumatic (principal); E66.01 Morbid (severe) obesity due to excess calories; Z68.42 Body mass index [BMI] 45.0-49.9, adult; E11.9 Type 2 diabetes mellitus without complications | CPT/HCPCS: 99213 ==

== ENCOUNTER 2023-06-09 18:30 | Outpatient (REF) | payer MEDICARE, MEDICAID, SELFPAY ==
[2023-06-09 19:50] LABS: Hemoglobin A1C 9.5 % (<5.7)
== END 2023-06-09 18:31 | disposition home or self-care (01) ==
LOC: NCHCN 18:30
PROVIDERS: PCP Nurse Practitioner Family; Visit Provider Nurse Practitioner Family
DX: Z13.1 Encounter for screening for diabetes mellitus (principal)
CPT/HCPCS: 83036

== ENCOUNTER 2023-06-12 16:18 | Outpatient (REF) | payer MEDICARE, MEDICAID, SELFPAY ==
[2023-06-12 19:05] LABS: ESR 28 mm/hr (0-30)
[2023-06-12 19:06] LABS: Abs Immature Grans 0.05 10^3/uL (0.0-0.06); Absolute Basophil Count 0.07 10^3/uL (0.0-0.2); Absolute Eosinophil Count 0.42 10^3/uL (0.0-0.7); Absolute Lymphocyte Count 2.36 10^3/uL (1.2-3.4); Absolute Monocyte Count 0.72 10^3/uL (0.1-0.8); Absolute Neutrophil Count 5.23 10^3/uL (1.2-6.7); Basophils % 0.8; Eosinophils % 4.7; HCT 41.7 % (36.0-46.0); HGB 13.4 g/dL (11.2-15.7); Immature Grans % 0.6; Lymphocytes % 26.7; MCH 29.5 pg (27.0-33.0); MCHC 32.1 % (32.0-36.0); MCV 92 fL (80-95); MPV 10.2 fL (8.0-11.0); Monocytes % 8.1; Neutrophils % 59.1; Platelet Count 283 10^3/uL (130-400); RBC 4.55 10^6/uL (3.93-5.22); RDW 14.6 % (11.7-14.6); RDW-SD 49.2 fL; WBC 8.85 10^3/uL (4.4-10.8)
[2023-06-12 19:35] LABS: Amylase 36 U/L (25-115); C-Reactive Protein 1.53 mg/dL (<or=0.5); Lipase 23 U/L (16-77)
== END 2023-06-12 16:19 | disposition home or self-care (01) ==
LOC: NCHCN 16:18
PROVIDERS: PCP Nurse Practitioner Family; Visit Provider Nurse Practitioner Family
DX: N76.0 Acute vaginitis; R82.89 Other abnormal findings on cytological and histological examination of urine
CPT/HCPCS: 83690; 85652; 82150; 85025; 86140; 87086; 87480; 87510; 87660

== ENCOUNTER 2023-06-26 17:34 | Outpatient (REF) | payer MEDICARE, MEDICAID, SELFPAY ==
[2023-06-26 19:22] LABS: ALT 33 U/L (14-59); AST 30 U/L (15-37); Albumin 3.5 g/dL (3.4-5.0); Alkaline Phosphatase 198 U/L (46-116); Anion Gap 8.6 mmol/L (3-11); BUN 23 mg/dL (7-18); Bilirubin, Total 0.2 mg/dL (0.2-1.0); C-Reactive Protein 1.41 mg/dL (<or=0.5); CO2 34.4 mmol/L (21.0-32.0); CREATININE 1.2 mg/dL (0.55-1.02); Calcium 9.3 mg/dL (8.5-10.1); Chloride 99 mmol/L (98-107); Glucose 199 mg/dL (74-106); Potassium 3.5 mmol/L (3.5-5.1); Sodium 142 mmol/L (136-145); Total Protein 8.5 g/dL (6.4-8.2)
== END 2023-06-26 17:35 | disposition home or self-care (01) ==
LOC: NCHCN 17:34
PROVIDERS: PCP Nurse Practitioner Family; Visit Provider Nurse Practitioner Family
DX: R79.82 Elevated C-reactive protein (CRP) (principal); R10.9 Unspecified abdominal pain
CPT/HCPCS: 80053; 86140

== ENCOUNTER → 2023-07-15 12:40 | Outpatient (BNVA) | payer MEDICARE, MEDICAID, SELFPAY | PROVIDERS: PCP Nurse Practitioner Family; Referring Provider Nurse Practitioner Family; Visit Provider Psychiatry & Neurology Neurology | DX: G62.9 Polyneuropathy, unspecified (principal); G43.009 Migraine without aura, not intractable, without status migrainosus; G89.29 Other chronic pain; F44.7 Conversion disorder with mixed symptom presentation | CPT/HCPCS: 99215; G2212 ==

== ENCOUNTER → 2023-07-28 04:19 | Outpatient (CLI) | payer MEDICARE, MEDICAID, SELFPAY ==
--- NOTE | 2023-07-28 | DI.MAMMO_ITS ---
Exam(s) MG MAMMO SCREENING 60 MIN DUR EXAM: MG MAMMO SCREENING 60 MIN DUR CLINICAL HISTORY: PERSONAL HX BREAST CANCER, Z85.3, SCREENING, HX LUMPECTOMY TECHNIQUE: Bilateral full field digital CC and MLO mammographic images were obtained with 3D tomosyn thesis and utilizing computer aided detection (CAD). COMPARISON: Available for comparison. FINDINGS: Masses/Architectural Distortion: Status post right lumpectomy. Stable breast nodules are seen. Ther e is a nodule seen at the posterior aspect of the right breast on the MLO view which is not present o n prior examinations. It measures 2 cm in length. It appears to lie in the medial aspect of the rig ht breast. Microcalcifications: No suspicious pleomorphic-type are seen. Skin Thickening/Nipple Retraction: None. IMPRESSION: 1. 2 cm right breast nodule in the upper inner right breast. Spot compression views are requested. 2. Right breast ultrasound should be obtained at that time. BI-RADS Category 0 - Assessment Incomplete: Need additional imaging evaluation Breast Density - Category A - Almost entirely fatty Breast density category C or D implies that the patient has dense breast tissue. Dense breast tissue is very common and is not abnormal but dense breast tissue can make it harder to find cancer on a ma mmogram. Also, dense breast tissue may increase their breast cancer risk. This information about the result of the mammogram report was provided to the patient to raise their awareness. Use this report when you speak with the patient about their risks for breast cancer, which includes their family hist ory. At that time, you may recommend for more screening tests (Ultrasound or MRI) as they might be us eful based on their risk. A negative radiographic report should not delay biopsy if a dominant or clinically suspicious mass is present. Up to ten percent of cancers are not identified on mammography. A negative report may reinforce clinical impression. Adenosis and dense breasts may obscure an underlying neoplasm. False positive reports average 6 to 10%. Patient will receive a letter notifying them of these results.
== END ==
PROVIDERS: PCP Nurse Practitioner Family; Visit Provider Nurse Practitioner Family
DX: Z12.31 Encounter for screening mammogram for malignant neoplasm of breast (principal); Z85.3 Personal history of malignant neoplasm of breast; N63.12 Unspecified lump in the right breast, upper inner quadrant
CPT/HCPCS: 77063; 77067

== ENCOUNTER 2023-07-28 13:01 | Outpatient (CLI) | payer MEDICARE, MEDICAID, SELFPAY ==
[2023-07-28 13:13] LABS: Vitamin B12 612 pg/mL (193-986)
[2023-07-29 16:10] LABS: Albumin 48.3 % (55.8-66.1); Albumin g/dL 3.9 g/dL (3.6-5.2); Comment (See Note); Total Protein 8.1 g/dL (6.3-8.2)
[2023-07-30 08:27] LABS: Immunotyping, Serum (See Note)
== END 2023-07-28 13:02 | disposition home or self-care (01) ==
LOC: LBO 13:03
PROVIDERS: PCP Nurse Practitioner Family; Visit Provider Psychiatry & Neurology Neurology
DX: G62.9 Polyneuropathy, unspecified (principal); E53.8 Deficiency of other specified B group vitamins
CPT/HCPCS: 36415; 82607; 84165; 86320

== ENCOUNTER → 2023-08-08 00:23 | Outpatient (CLI) | payer MEDICARE, MEDICAID, SELFPAY ==
--- NOTE | 2023-08-08 | DI.US_ITS ---
Exam(s) MG MAMMO SCREEN CALL BACK UNI US BREAST RT LIMITED EXAM: MG MAMMO SCREEN CALL BACK UNI and U/S breast RT limited CLINICAL HISTORY: F/U MAMMO, R92.8,2 CM RT BREAST NODULE,PERSONAL H/O BREAST CA. TECHNIQUE: Craniocaudal and mediolateral oblique Full Field Digital Mammography views of the right b reast with Computer Aided Diagnosis followed by Tomosynthesis and right breast ultrasound. COMPARISON: Comparison is made with prior examinations. FINDINGS: Mammography/Tomosynthesis: Masses/Architectural Distortion: The well-circumscribed nodule persists on the additional views. It measures 2.2 cm long. There is no area of architectural distortion or suspicious microcalcifications associated with this nodule. Microcalcifictions: No suspicious pleomorphic-type are seen. Skin Thickening/Nipple Retraction: None. Limited right breast US: Echotexture: Normal appearance of the glandular tissue. Shadowing: No suspicious foci. Cyst: None. Solid lesions: There is a solid well-circumscribed hypoechoic mass at the 2 o'clock position of the r ight breast 15 cm from the nipple. This corresponds to the mammographic abnormality. Sonographicall y, it measures 1.1 x 1.7 x 2.4 cm. No spiculation or posterior acoustic enhancement or shadowing is seen. Ductal dilation: None. IMPRESSION: 1. Well-circumscribed hypoechoic mass in the right breast corresponding to the mammographic abnormali ty. This may represent a benign lesion such as a fibroadenoma. 2. No definite evidence of malignancy is seen at this time. A six-month follow-up ultrasound is shell mmended for re-evaluation. 3. The findings were discussed with the patient on the date of the examination. BI-RADS Category 3 - 6 month - Probably Benign Finding: Recommend follow-up imaging in 6 months Breast Density - Category A - Almost entirely fatty Breast density Category C or D implies that the patient has dense breast tissue. Dense breast tissue can make it harder to find cancer on a mammogram. Dense breast tissue is also associated with an incr eased risk of breast cancer. This information about the result of the mammogram report was provided to the patient to raise their awareness. Use this report when you speak with the patient about their risks for breast cancer, which includes their family history. At that time, you may recommend additional screening tests (Ultrasoun d or MRI) as these tests may add significant information. A negative radiographic report should not delay biopsy if a dominant or clinically suspicious mass is present. Up to ten percent of cancers are not identified on mammography. A negative report may reinforce clinical impression. Adenosis and dense breasts may obscure an underlying neoplasm. False positive reports average 6 to 10%. Patient will receive a letter notifying them of these results.
== END ==
PROVIDERS: PCP Nurse Practitioner Family; Visit Provider Nurse Practitioner Family
DX: R92.8 Other abnormal and inconclusive findings on diagnostic imaging of breast (principal); Z12.31 Encounter for screening mammogram for malignant neoplasm of breast
CPT/HCPCS: 76642; 77063; 77067

== ENCOUNTER 2023-08-21 13:48 | Outpatient (REF) | payer MEDICARE, MEDICAID, SELFPAY ==
[2023-08-21 11:39] LABS: ALT 27 U/L (14-59); AST 20 U/L (15-37); Albumin 3.6 g/dL (3.4-5.0); Alkaline Phosphatase 172 U/L (46-116); Anion Gap 7.5 mmol/L (3-11); BUN 26 mg/dL (7-18); Bilirubin, Total 0.4 mg/dL (0.2-1.0); CO2 33.5 mmol/L (21.0-32.0); CREATININE 1.3 mg/dL (0.55-1.02); Calcium 9.2 mg/dL (8.5-10.1); Chloride 100 mmol/L (98-107); Estimated GFR 46.78 (mL/min/1.73m2); Glucose 192 mg/dL (74-106); Potassium 3.6 mmol/L (3.5-5.1); Sodium 141 mmol/L (136-145); TSH 2.26 uIU/Ml (0.36-3.74); Total Protein 8.5 g/dL (6.4-8.2)
[2023-08-21 13:10] LABS: COMMENT (LAB VIEW ONLY) < 13.00 mg/dL
[2023-08-23 09:23] LABS: Fructosamine 265 mcmol/L (200 - 285)
== END 2023-08-21 13:49 | disposition home or self-care (01) ==
LOC: LBN 13:48
PROVIDERS: PCP Nurse Practitioner Family; Visit Provider Internal Medicine Endocrinology, Diabetes & Metabolism
DX: E11.649 Type 2 diabetes mellitus with hypoglycemia without coma (principal)
CPT/HCPCS: 36415; 80053; 82533; 82043; 82570; 82985; 84443

== ENCOUNTER 2023-09-02 16:50 | Outpatient (REF) | payer MEDICARE, MEDICAID, SELFPAY ==
[2023-09-02 18:45] LABS: Bilirubin Negative (Negative); Blood Trace-intact (Negative); Clarity Clear (Clear); Glucose 500 mg/dL (Negative); Ketones Negative (Negative); Leukocyte Esterase Negative (Negative); Nitrite Negative (Negative); Urobilinogen 0.2 mg/dL (Up to 0.2)
[2023-09-02 19:16] LABS: Bacteria Many HPF (Negative); C & S Indicated? No/Sq. Contamination; Crystals Negative HPF (Negative); Epithelial Cells Many HPF (Negative); Mucus Negative (Negative); RBC 0-2 HPF (0-2)
== END 2023-09-02 16:51 | disposition home or self-care (01) ==
LOC: NCHCN 16:50
PROVIDERS: PCP Nurse Practitioner Family; Visit Provider Family Medicine
DX: R10.2 Pelvic and perineal pain (principal)
CPT/HCPCS: 81003; 81015

== ENCOUNTER → 2023-09-16 12:16 | Outpatient (BNVA) | payer MEDICARE, MEDICAID, SELFPAY | PROVIDERS: PCP Nurse Practitioner Family; Referring Provider Nurse Practitioner Family; Visit Provider Psychiatry & Neurology Neurology | DX: G43.009 Migraine without aura, not intractable, without status migrainosus (principal); G62.9 Polyneuropathy, unspecified; G89.29 Other chronic pain; R40.4 Transient alteration of awareness; F44.7 Conversion disorder with mixed symptom presentation | CPT/HCPCS: 99215 ==

== ENCOUNTER → 2023-09-23 11:09 | Outpatient (BNVA) | payer MEDICARE, MEDICAID, SELFPAY | PROVIDERS: PCP Nurse Practitioner Family; Referring Provider Nurse Practitioner Family; Visit Provider Surgery | DX: Z12.11 Encounter for screening for malignant neoplasm of colon (principal); Z80.0 Family history of malignant neoplasm of digestive organs ==

== ENCOUNTER 2023-09-29 10:45 | Day surgery (SDC) | payer MEDICARE, MEDICAID, SELFPAY ==
[2023-09-29] VITALS (20 sets, daily range): BP systolic 130–164; BP diastolic 64–84; PULSE 68–89; RESP 10–19; TEMP 36–36.6; O2SAT 91–100; BMI 43.2
[2023-09-29] MEDS: Lactated Ringers 1,000 ML 80 ML IV (11:25)
--- NOTE | 2023-09-29 11:31 | W.COLOREPORT ---
Date of service: 09/29/23 Time of Service: 11:31 Colonoscopy Report Procedure Description: PROCEDURES PERFORMED: 1. Colonoscopy PREOPERATIVE DIAGNOSIS: Surveillance colonoscopy POSTOPERATIVE DIAGNOSIS: Sigmoid diverticulosis, poor prep SURGEON: Leon Alexandra MD INDICATION FOR PROCEDURE: the patient is a 62-year-old woman who had a traumatic brain injury and has difficulty recalling her medical history. Reportedly mother has/had colon cancer. Patient reportedly had normal previous colonoscopies (we do not have records). She denies any current symptoms. FINDINGS: Poor prep throughout. Small and even medium-size polyps could have been missed. Large polyps and/or tumors would not have been missed and are reliably ruled out. Mild diverticular changes in the sigmoid colon. No significant hemorrhoid disease. SURVEILLANCE interval/FOLLOW-UP: 3 years with a prolonged/extended prep. SPECIMENS: None EBL: Minimal COMPLICATIONS: None QUALITY of prep: Poor throughout(too thick for suctioning clean) - small and medium sized polyps could have easily been missed. Procedure in detail: The patient gave written consent and was in agreement with the indications, the potential risks as well as the benefits of the procedure. She was return from upper endoscopy (see separate procedure note) and anesthesia was continued and we started the colonoscopy portion of the procedure. Digital rectal and visual examination was performed and grossly within normal limits. A well-lubricated flexible colonoscope was then introduced and passed without any notable difficulty all the way to the cecum identified by the ileocecal valve and the appendiceal folds. Unfortunately the prep was too poor and too thick to assess for the appendiceal orifice. The scope was then slowly withdrawn with the above-noted findings. The patient tolerated the procedure well and was taken to the PACU in hemodynamically stable condition.
--- NOTE | 2023-09-29 11:33 | W.PM.ENDDOP ---
Date of service: 09/29/23 Time of Service: 11:33 Endoscopy Report PROCEDURE DESCRIPTION: PROCEDURES PERFORMED: 1. EGD with biopsies PREOPERATIVE DIAGNOSIS: Stomach ulcers POSTOPERATIVE DIAGNOSIS: Bile reflux SURGEON: Leon Alexandra MD INDICATION FOR PROCEDURE: 62-year-old woman with history of TBI precluding her ability to give accurate history. Reportedly has had gastric ulcers in the past. FINDINGS: D2/D3 = normal D1/bulb = normal Pylorus = normal Antrum = significant bile noted but otherwise normal appearance, no ulcers, cold forceps biopsies were taken to rule out H. pylori routinely Body = bile noted pooling, but otherwise appears normal. Biopsies taken with cold forceps technique routinely Fundus = normal, no polyps Cardia = normal Hiatus = no hiatal hernia Distal esophagus = no inflammation, no esophagitis, no Shay's, no stricture. Mid esophagus = normal Proximal esophagus/hypopharynx/vocal cords = normal SURVEILLANCE-INTERVAL/FOLLOW-UP: Follow-up with PCP, I do not see a reason to have another endoscopy done in the future at this time. Specimens: Yes EBL: Minimal COMPLICATIONS: None Procedure in detail: The patient gave written consent and was in agreement with the indications, the potential risks as well as the benefits of the procedure. The patient was taken to the endoscopy suite and laid on their left side. Anesthesia was given which was tolerated well. We performed a timeout and we are in agreement I started the procedure. A well-lubricated endoscope was gently and carefully advanced down the esophagus, into the stomach the scope was and through the pylorus into the duodenum. The scope was then slowly withdrawn with the above-noted findings/interventions. The patient tolerated the procedure well and was then turned for colonoscopy (see separate procedure note).
--- NOTE | 2023-09-29 11:38 | W.PM.DSUDISC ---
Date of service: 09/29/23 Time of Service: 11:38 Discharge Plan Disposition Patient Disposition: Home Condition: Good Discharge Details Attending Provider: Cy Alexandra Primary Care Provider: Binta Moreno [place] Meds and New Rx's Prescriptions: No Action acetylcysteine 600 mg capsule 600 mg PO DAILY Patient Comments: pt. unsure when she used last ammonium lactate-urea 5-20 % cream topical aspirin 81 mg capsule 81 mg PO DAILY mecobalamin (vitamin B12) 1,000 mcg tablet,chewable 1,000 mcg PO DAILY Tradjenta 5 mg tablet 5 mg PO DAILY topiramate [Topamax] 25 mg tablet See Rx Instructions PO .COMPLEX Qty: 120 5RF Rx Instructions: orally; take 25mg HS x 1week, then BID x 1wk, then 25mg am and 50mg HS x 1wk, then 50mg BID thereafter prochlorperazine maleate 5 mg tablet 5 mg PO TID PRN (Reason: nausea and vomiting or headaches) Qty: 30 5RF polyethylene glycol 3350 17 gram/dose powder 238 g PO ONCE Qty: 238 0RF Rx Instructions: take per colonoscopy instructions bisacodyl [Dulcolax (bisacodyl)] 5 mg tablet,delayed release (DR/EC) 5 mg PO ONCE Qty: 4 0RF Rx Instructions: take per colonoscopy instructions pregabalin [Lyrica] 150 mg capsule 150 mg PO BID Qty: 180 3RF metformin 750 mg tablet extended release 24 hr 1,000 mg PO BID lidocaine 5 % adhesive patch,medicated 1 patch topical DAILY Rx Instructions: leave on most painful area for up to 12 hrs hydroxyzine HCl 10 mg tablet 10 mg PO QHS dicyclomine 10 mg capsule 10 mg PO BID desipramine 100 mg tablet 200 mg PO QHS pantoprazole 40 mg tablet,delayed release (DR/EC) 40 mg PO DAILY spironolactone 25 mg tablet 25 mg PO DAILY Patient Comments: pt. unsure when she took it last tramadol 50 mg tablet 50 mg PO TID PRN oxybutynin chloride 10 mg tablet extended release 24hr 10 mg PO DAILY aripiprazole 15 mg tablet 15 mg PO DAILY atorvastatin 20 mg tablet 20 mg PO DAILY cyclobenzaprine 10 mg tablet 10 mg PO BID PRN Jardiance 25 mg tablet 25 mg PO DAILY meclizine 25 mg tablet 25 mg PO TID PRN carvedilol 6.25 mg tablet 12.5 mg PO BID Patient Comments: pt.reports she takes whole pill Rx Instructions: must administer with a meal/food torsemide 20 mg tablet 20 mg PO DAILY Patient Comments: pr. reports taking 60 mg isosorbide mononitrate 30 mg tablet extended release 24 hr 30 mg PO DAILY Discharge Instructions Additional Instructions: FINDINGS: On upper endoscopy, a condition called bile reflux was noted. No ulcers were seen. There is nothing that can be done about this condition. You can discuss further with your PCP. On colonoscopy, no tumors or large polyps were found. Small polyps could have been missed. You should have another colonoscopy in 3 years. The next time you do a colonoscopy, you need to do something called an extended prep. You have mild/minimal diverticular disease which is extremely common, benign and nothing needs to be done about it. Stand Alone Forms: Anesthesia Discharge Inst., Colonoscopy Post Instructions, Rossi Womack ([facility]) Activity:: Activity as Tolerated Diet:: As Tolerated
--- NOTE | 2023-09-29 11:50 | W.ANESPRE ---
General Info Date of Service Date Performed: 09/29/23 Height: 5 ft 5 in Weight: 118 kg Body Mass Index (BMI): 43.2 Surgical Procedure: Operation Date: 09/29/23 12:35 Proposed Procedure Side Surgeon p Colonoscopy/Gastroscopy Cy Alexandra MD Meds Allergies and Home Medications Allergies Allergy/AdvReac Type Severity Reaction Status Date / Time sumatriptan Allergy Severe Anaphylaxis Verified 09/29/23 11:21 gabapentin Allergy Intermediate other Verified 09/29/23 11:21 Penicillins Allergy Intermediate Hives Verified 09/29/23 11:21 adhesive Allergy Unknown Other (See Verified 09/29/23 11:21 Comment) codeine Allergy Unknown other Verified 09/29/23 11:21 divalproex sodium AdvReac Severe Suicidal Verified 09/29/23 11:21 [From Depakote] Ideation mushroom AdvReac vomiting Verified 09/29/23 11:21 tegaderm Allergy Severe Skin Rash Uncoded 09/29/23 11:21 Home Medication Medication Instructions Recorded aripiprazole 15 mg tablet 15 mg PO DAILY 02/18/23 atorvastatin 20 mg tablet 20 mg PO DAILY 02/18/23 cyclobenzaprine 10 mg tablet 10 mg PO BID PRN 02/18/23 desipramine 100 mg tablet 200 mg PO QHS 02/18/23 dicyclomine 10 mg capsule 10 mg PO BID 02/18/23 hydroxyzine HCl 10 mg tablet 10 mg PO QHS 02/18/23 lidocaine 5 % topical patch 1 patch topical DAILY 02/18/23 oxybutynin chloride 10 mg 10 mg PO DAILY 02/18/23 tablet,extended release 24 hr pantoprazole 40 mg tablet,delayed 40 mg PO DAILY 02/18/23 release spironolactone 25 mg tablet 25 mg PO DAILY 02/18/23 tramadol 50 mg tablet 50 mg PO TID PRN 02/18/23 empagliflozin 25 mg tablet 25 mg PO DAILY 03/18/23 (Jardiance) meclizine 25 mg tablet 25 mg PO TID PRN 03/18/23 Lyrica 150 mg capsule (pregabalin) 150 mg PO BID #180 caps 07/15/23 Topamax 25 mg tablet (topiramate) See Rx Instructions PO .COMPLEX 09/16/23 #120 tabs acetylcysteine 600 mg capsule 600 mg PO DAILY 09/16/23 ammonium lactate 5 %-urea 20 % applic topical 09/16/23 topical cream aspirin 81 mg capsule 81 mg PO DAILY 09/16/23 carvedilol 6.25 mg tablet 12.5 mg PO BID 09/16/23 linagliptin 5 mg tablet (Tradjenta) 5 mg PO DAILY 09/16/23 mecobalamin (vitamin B12) 1,000 1,000 mcg PO DAILY 09/16/23 mcg chewable tablet metformin 750 mg tablet,extended 1,000 mg PO BID 09/16/23 release 24 hr prochlorperazine maleate 5 mg 5 mg PO TID PRN nausea and 09/16/23 tablet vomiting or headaches #30 tabs torsemide 20 mg tablet 20 mg PO DAILY 09/16/23 bisacodyl 5 mg tablet,delayed 5 mg PO ONCE colonscopy bowel prep 09/23/23 release (Dulcolax (bisacodyl)) #4 tabs polyethylene glycol 3350 17 238 g PO ONCE colonoscopy prep 09/23/23 gram/dose oral powder #238 grams isosorbide mononitrate 30 mg 30 mg PO DAILY 09/26/23 tablet,extended release 24 hr Current Visit Medications: Current Medications Generic Name Dose Route Start Last Admin Trade Name Freq PRN Reason Stop Dose Admin Ringer's Solution 1,000 mls @ 80 mls/hr 09/29/23 06:00 09/29/23 11:25 IV 10/26/23 23:59 80 mls/hr INFUSION MACIEL Administration IV Miscellaneous Supplies 1 each 09/29/23 06:00 Iv Access IV 10/26/23 23:59 DIRECTED MACIEL Sodium Chloride 0 ml 09/29/23 06:00 Normal Saline Flush 10 Ml Syr IV 10/26/23 23:59 PRN PRN Sodium Chloride 0 ml 09/29/23 06:00 Normal Saline 10 Ml Vial IJ 10/26/23 23:59 DIRECTED PRN Sterile Water 0 ml 09/29/23 06:00 Water,Injection,Sterile 10 Ml Vial IJ 10/26/23 23:59 DIRECTED PRN PFSH Active Problems Active Problems: Problem Status Onset Code Functional neurological symptom disorder with mixed symptoms F44.7 Nonspecific paroxysmal spell R40.4 Chronic headache R51.9, G89.29 Rotator cuff tear, right M75.101 Peripheral neuropathy G62.9 Migraine without aura G43.009 Medical History Medical History Schizophrenia PTSD (post-traumatic stress disorder) Pt. states no triggers Breast cancer CAD (coronary artery disease) Arthritis of knee Carpal tunnel syndrome Chronic superficial gastritis Severe obesity (BMI >= 40) Diabetes History of depression Dizziness Dyslipidemia Essential hypertension Hepatic artery stenosis History of IBS Lumbar radiculopathy Weakness Mixed incontinence Obstructive sleep apnea Dysphagia History of posttraumatic stress disorder (PTSD) Shortness of breath History of claustrophobia CHF (congestive heart failure) Medical History Comments:: Pt. states she and her father have always had a hard time waking up Surgical History Surgical History Hx of colonoscopy Hx of cholecystectomy History of esophagogastroduodenoscopy (EGD) (~06/28/21) Per [facility], information from [facility] in [facility], EGD = normal esophagus ,stomach and duodenum S/P rotator cuff surgery S/P bladder repair S/P hysterectomy S/P lumpectomy of breast S/P cholecystectomy Tobacco Smoking/Tobacco Use Status: Never Alcohol Alcohol Intake: never Substance Use Substance use: Never Substance use type: does not use Vital Signs and Lab Results Vital Signs Most Recent Vital Signs in EMR: Most Recent Vital Signs Temp Pulse Resp BP Pulse Ox 36.0 C L 89 16 153/84 H 91 L 09/29/23 11:36 09/29/23 11:36 09/29/23 11:36 09/29/23 11:36 09/29/23 11:36 Point of Care Results Point of Care Results: Finger Stick Blood Glucose 152 09/29/23 11:06 Lab Results Blood Type / Crossmatch: No Data to Display Complete Blood Count: No Data to Display Complete Metabolic Panel: No Data to Display Liver Function Panel: No Data to Display Coagulation Panel: No Data to Display Cardiac Panel: No Data to Display Arterial Blood Gas: No Data to Display Venous Blood Gas: No Data to Display Pancreas Panel: No Data to Display Thyroid Panel: No Data to Display Infectious Disease: No Data to Display Blood Cultures: No Data to Display Toxicology Panel: No Data to Display Imaging and Studies Imaging and Studies Study information below may be from another EMR and interpreted by another provider. Please see original notes in EMR for more complete details. EKG Summary: EKG PATIENT NAME: Kristie Carson UNIT #: [id number] ORDERING PROVIDER: Wen Sexton NP PRIMARY CARE PROVIDER: [facility]U LOCAL DATE/TIME OF SERVICE: 12/14/22 1242 : 1960 PERFORMING LOCATION: ER APPROVED REPORT Exam: Resting ECG Reason for Exam: Repeat Patient Location: E HR:102 bpm ECG Measurements Heart Rate 102 AXIS UT 156 P 51 QRSd 82 QRS 71 QT 404 T46 QTc 527 Conclusion Sinus tachycardia...rate> 99 Low voltage, precordial leads...precordial leads <1.0mV Prolonged QT interval...QTc >500mS <Electronically signed by PAULINA PRECIADO MD in [place]> E-Sign Date: 12/14/22 E-Sign Time: 1300 ADDENDUM APPROVED REPORT Exam: Resting ECG Reason for Exam: Repeat Patient Location: E HR:102 bpm ECG Measurements Heart Rate 102 AXIS UT 156 P 51 QRSd 82 QRS 71 QT 404 T46 QTc 527 Conclusion Sinus tachycardia...rate> 99 Low voltage, precordial leads...precordial leads <1.0mV Prolonged QT interval...QTc >500mS I have reviewed and I agree with the emergency room physician's ECG interpretation. Electronically signed by: <Electronically signed by Lenore García M.D. in [place]> 12/17/22 0826 Cosigned by: Anesthesia Assessment and Plan Anesthesia History Personal History: Delayed Emergence Family History: Other Exercise Tolerance Exercise Tolerance: Metabolic Equivalents>4 Pertinent Negatives Pertinent Negatives: No Symptoms of GERD Cardiac & Pulmonary Exam Cardiac Exam: Normal S1/S2 Heart Sounds Pulmonary Exam: Clear Bilateral Breath Sounds Implantable Cardiac Device Does patient have a Pacemaker or an ICD?: No Airway Exam Known Difficult Airway: No Mallampati Class: 2 Mouth Opening: Normal (> 3cm) Thyromental Distance: Greater than 3 cm Neck Range of Motion: Full ROM Neck Circumference: Normal Teeth Condition: Normal Dentition ASA Classification ASA Score: ASA 4 Emergency Case?: No NPO Status NPO Status: NPO Clears >2 hours, Solids >8 hours Anesthesia Plan Resuscitation Status: Full Code Anesthesia Technique: General Anesthesia Airway Planned: Natural Airway Monitors Used: Standard Monitors
--- NOTE | 2023-09-29 12:42 | STOM_PTH ---
PATIENT: Kristie Carson LOC: [facility] U#:[id number] AGE/SX: 62/F ROOM: RE09/29/[address]: Cy Alexandra : 1960 BED: DIS: 09/29/2023 SPEC #: [id number] RECD: 09/29/23 18:03 STATUS: TRE Sg #: [id number] JANIS: 09/29/23 12:[address]: Cy Alexandra DEPT: Surgical Specimen RECD BY: Florencia Pearl ENTERED: 09/29/23 18:04 SP TYPE: STOMACH OTHR DR: Binta Moreno Tissues: 1 - STOMACH BIOPSY 2 - STOMACH BIOPSY 3 - ESOPHAGUS BIOPSY Procedures: GROSS AND MICRO LEVEL 4 SPECIAL STAIN 1 Comments: [id number]
--- NOTE | 2023-09-29 13:41 | W.ANESPOSTOP ---
Postoperative Evaluation Date, Time and Location Date Performed: 09/29/23 Time Performed: 13:41 Patient Location: PACU Vital Signs Most Recent Imported Vital Signs: Most Recent Vital Signs Temp Pulse Resp BP Pulse Ox 36.5 C 73 10 L 164/71 H 100 09/29/23 13:28 09/29/23 13:36 09/29/23 13:36 09/29/23 13:36 09/29/23 13:36 Pain Score Most Recent Pain Score: Most Recent Pain Score Pain Level 0 09/29/23 13:28 Assessment Mental Status: Awake (Alert & Oriented to Patient Baseline) Airway and Respiratory Function: Patent airway with normal (patient baseline) respiratory exam Cardiovascular Function: Hemodynamically Stable Hydration Status: Adequately Hydrated Nausea & Vomiting: No Nausea or Vomiting Pain: Pt. Denies Any Pain Peripheral Nerve Block: Patient did not receive a nerve block
== END 2023-09-29 14:45 | disposition home or self-care (01) ==
LOC: SUR 10:46
PROVIDERS: PCP Nurse Practitioner Family; Visit Provider Student in an Organized Health Care Education/Training Program
PROC: (CPT 43239; principal; 2023-09-29 12:30)
DX: Z12.11 Encounter for screening for malignant neoplasm of colon (principal); E78.70 Disorder of bile acid and cholesterol metabolism, unspecified; K57.30 Diverticulosis of large intestine without perforation or abscess without bleeding; K29.70 Gastritis, unspecified, without bleeding; K22.89 Other specified disease of esophagus
CPT/HCPCS: 43239; G0105; 00123; 88305; 88312; J2001; J2704

== ENCOUNTER 2023-10-30 13:16 | Outpatient (CLI) | payer MEDICARE, MEDICAID, SELFPAY ==
[2023-10-30 12:48] LABS: Hemoglobin A1C 7.3 % (<5.7)
[2023-10-30 13:20] LABS: ALT 25 U/L (14-59); AST 12 U/L (15-37); Albumin 3.4 g/dL (3.4-5.0); Alkaline Phosphatase 168 U/L (46-116); Anion Gap 9.4 mmol/L (3-11); BUN 17 mg/dL (7-18); Bilirubin, Total 0.22 mg/dL (0.2-1.0); CO2 31.6 mmol/L (21.0-32.0); CREATININE 1.2 mg/dL (0.55-1.02); Calcium 9.1 mg/dL (8.5-10.1); Chloride 103 mmol/L (98-107); Glucose 139 mg/dL (74-106); Magnesium 2.1 mg/dL (1.8-2.4); Potassium 3.3 mmol/L (3.5-5.1); Sodium 144 mmol/L (136-145); Total Protein 8.3 g/dL (6.4-8.2)
== END 2023-10-30 13:17 | disposition home or self-care (01) ==
LOC: LBO 13:16
PROVIDERS: PCP Nurse Practitioner Family; Visit Provider Nurse Practitioner Family
DX: E11.65 Type 2 diabetes mellitus with hyperglycemia (principal); N18.30 Chronic kidney disease, stage 3 unspecified
CPT/HCPCS: 36415; 80053; 83036; 83735

== ENCOUNTER 2023-11-18 16:22 | Outpatient (CLI) | payer MEDICARE, MEDICAID, SELFPAY ==
[2023-11-18 10:56] LABS: COMMENT (LAB VIEW ONLY) 41.52 mg/dL; Microalb ug/mg Crea 48.4 ug/mg Cr
[2023-11-18 11:00] LABS: ALT 26 U/L (14-59); AST 13 U/L (15-37); Albumin 3.5 g/dL (3.4-5.0); Alkaline Phosphatase 160 U/L (46-116); Anion Gap 8.9 mmol/L (3-11); BUN 19 mg/dL (7-18); Bilirubin, Total 0.16 mg/dL (0.2-1.0); CO2 29.1 mmol/L (21.0-32.0); CREATININE 1.2 mg/dL (0.55-1.02); Calcium 9.3 mg/dL (8.5-10.1); Chloride 104 mmol/L (98-107); Glucose 115 mg/dL (74-106); Potassium 3.8 mmol/L (3.5-5.1); Sodium 142 mmol/L (136-145); TSH 0.88 uIU/Ml (0.36-3.74); Total Protein 8.1 g/dL (6.4-8.2)
[2023-11-20 15:18] LABS: Fructosamine 213 mcmol/L (200 - 285)
== END 2023-11-18 16:23 | disposition home or self-care (01) ==
LOC: LBO 16:23
PROVIDERS: PCP Nurse Practitioner Family; Visit Provider Internal Medicine Endocrinology, Diabetes & Metabolism
DX: E11.649 Type 2 diabetes mellitus with hypoglycemia without coma (principal)
CPT/HCPCS: 36415; 80053; 82043; 82570; 82985; 84443

== ENCOUNTER → 2023-12-02 10:55 | Outpatient (BNVA) | payer MEDICARE, MEDICAID, SELFPAY | PROVIDERS: PCP Nurse Practitioner Family; Referring Provider Nurse Practitioner Family; Visit Provider Psychiatry & Neurology Neurology | DX: G43.009 Migraine without aura, not intractable, without status migrainosus (principal); G62.9 Polyneuropathy, unspecified; G89.29 Other chronic pain; R40.4 Transient alteration of awareness | CPT/HCPCS: 99215 ==

== ENCOUNTER 2023-12-30 01:08 | Outpatient (CLI) | payer MEDICARE, MEDICAID, SELFPAY ==
--- NOTE | 2023-12-30 13:45 | DI.MRI_ITS ---
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 COMPARISON: No exams were available for comparison FINDINGS: MRI BRAIN WITHOUT IV CONTRAST: CEREBRAL PARENCHYMA: There is no evidence of intracranial hemorrhage, mass effect, or shift of midline structures. There are no extra-axial fluid collections. Ventricles are not enlarged or shifted. No evidence of cerebe llar tonsillar ectopia. There is no significant focal signal abnormality in the cerebellar hemispheres nor within the den, m idbrain, and thalami. One FLAIR imaging there are a few small 4 mm foci of signal abnormality in the right periventricular white matter, not associated with hemorrhage, surrounding edema, nor restricted diffusion. There is no significant focal signal abnormality evident on diffusion imaging to suggest acute ischem ic event. No abnormal signal in the occipital lobes. PITUITARY GLAND: No mass nor parasellar abnormality. No obvious abnormality in the cavernous sinuses. FLOW VOIDS: The expected flow void are noted. No evidence of obvious aneurysm nor obvious vascular ma lformation. PARANASAL SINUSES: Focal mucosal thickening is noted in the roof of the right maxillary sinus. No as sociated fluid level. MRI ORBITS WITHOUT IV CONTRAST: There is no evidence of proptosis nor in enopthalmos nor evidence of dysconjugate gaze. ORBITS: The anterior and posterior chambers of the globes are intact. No evidence of obvious posteri or vitreous nor retinal detachment. The retrobulbar fat is unremarkable. Extraocular muscles are unr emarkable. OPTIC NERVES: The intracranial and extracranial portions of the optic nerves appear symmetrical and w ithin normal limits on this noninfused study. Optic chiasm appears unremarkable. No MRI evidence of obvious optic neuritis identified. LACRIMAL GLANDS: Unremarkable bilaterally. SOFT TISSUES: Remaining soft tissues are unremarkable. IMPRESSION: 1. No significant focal findings in the orbits. Optic nerves appear unremarkable bilaterally on thi s noninfused study. 2. With respect of the brain, there are 3 small nonspecific foci of FLAIR bright signal abnormality in the right periventricular white matter, each measuring 4 mm size and not associated with hemorrhag e, surrounding edema, nor restricted diffusion. DATA REPOSITORY:
== END 2023-12-30 01:28 ==
LOC: DI 01:08
PROVIDERS: PCP Nurse Practitioner Family; Visit Provider Psychiatry & Neurology Neurology
DX: H47.20 Unspecified optic atrophy (principal)
CPT/HCPCS: 70540; 70551

== ENCOUNTER → 2024-02-02 13:43 | Outpatient (BNVA) | payer MEDICARE, MEDICAID, SELFPAY | PROVIDERS: PCP Nurse Practitioner Family; Referring Provider Nurse Practitioner Family; Visit Provider Psychiatry & Neurology Neurology | DX: G43.009 Migraine without aura, not intractable, without status migrainosus (principal); G62.9 Polyneuropathy, unspecified; G89.29 Other chronic pain; I10 Essential (primary) hypertension; E11.9 Type 2 diabetes mellitus without complications; I50.9 Heart failure, unspecified; I25.2 Old myocardial infarction | CPT/HCPCS: 99215 ==

== ENCOUNTER 2024-02-09 01:17 | Outpatient (CLI) | payer MEDICARE, MEDICAID, SELFPAY ==
--- NOTE | 2024-02-09 | DI.MAMMO_ITS ---
Exam(s) MG MAMMO DIAGNOSTIC UNI US BREAST RT LIMITED EXAM: MG MAMMO DIAGNOSTIC UNI CLINICAL HISTORY: ? Nodule at 2 oclock. COMPARISON: MG MG MAMMO SCREENING 60 MIN DUR from 07/28/2023 MG MG MAMMO SCREEN CALL BACK UNI from 08/08/2023 US US BREAST RT LIMITED from 08/08/2023 US US BREAST RT LIMITED from 02/09/2024 TECHNIQUE: Craniocaudal and mediolateral oblique Full Field Digital Mammography views of the right b reast with Computer Aided Diagnosis followed by Tomosynthesis and right breast ultrasound. FINDINGS: Mammography/Tomosynthesis: Masses/Architectural Distortion: Interval increase size previously noted circumscribed nodule in the medial right breast. Post lumpectomy changes are also noted in the superior right breast.. Microcalcifications: No suspicious pleomorphic-type are seen. Calcifications consistent with fat ne crosis noted at at lumpectomy site Skin Thickening/Nipple Retraction: None. Right breast US: Echotexture: Normal appearance of the glandular tissue. Shadowing: No suspicious foci. Cyst: None. Solid lesions: Interval increase in size previously noted nodule in the medial right breast at the 2 o'clock position. It now measures 3.3 by 1.3 x 1.9 cm compared with 2.4 x 1.1 x 1.7 cm on the prior exam. No posterior shadowing. The margins appear circumscribed. Minimal lobulation. Interval incr ease in heterogeneity of the lesion. Ductal dilation: None. IMPRESSION: Interval increase in size of previously noted lesion in the medial right breast. Biopsy is recommend ed particularly in light of prior cancer history.. The findings were discussed with the patient following the examination. BI-RADS Category 4 - Suspicious Abnormality: Biopsy should be considered Breast Density - Category B - Scattered areas of fibroglandular density A negative radiographic report should not delay biopsy if a dominant or clinically suspicious mass is present. Up to ten percent of cancers are not identified on mammography. A negative report may reinforce clinical impression. Adenosis and dense breasts may obscure an underlying neoplasm. False positive reports average 6 to 10%. Patient will receive a letter notifying them of these results.
== END 2024-02-09 01:37 ==
LOC: DI 01:17
PROVIDERS: PCP Nurse Practitioner Family; Visit Provider Nurse Practitioner Family
DX: Z12.31 Encounter for screening mammogram for malignant neoplasm of breast (principal); R92.8 Other abnormal and inconclusive findings on diagnostic imaging of breast
CPT/HCPCS: 76642; 77061; 77065; G0279

== ENCOUNTER 2024-02-18 16:33 | Outpatient (REF) | payer MEDICARE, MEDICAID, SELFPAY ==
[2024-02-18 20:03] LABS: HCT 39.8 % (36.0-46.0); HGB 12.5 g/dL (11.2-15.7); MCH 28.8 pg (27.0-33.0); MCHC 31.4 % (32.0-36.0); MCV 92 fL (80-95); MPV 10.3 fL (8.0-11.0); Platelet Count 323 10^3/uL (130-400); RBC 4.34 10^6/uL (3.93-5.22); RDW 17.2 % (11.7-14.6); RDW-SD 57.8 fL; WBC 9.02 10^3/uL (4.4-10.8)
[2024-02-18 20:31] LABS: ALT 25 U/L (14-59); AST 17 U/L (15-37); Albumin 3.3 g/dL (3.4-5.0); Alkaline Phosphatase 154 U/L (46-116); Anion Gap 9.2 mmol/L (3-11); BUN 15 mg/dL (7-18); Bilirubin, Total 0.21 mg/dL (0.2-1.0); CO2 31.8 mmol/L (21.0-32.0); CREATININE 1.1 mg/dL (0.55-1.02); Calcium 9.4 mg/dL (8.5-10.1); Chloride 104 mmol/L (98-107); Estimated GFR 56.81 (mL/min/1.73m2); Glucose 137 mg/dL (74-106); Potassium 3.2 mmol/L (3.5-5.1); Sodium 145 mmol/L (136-145)
[2024-02-18 20:40] LABS: Hemoglobin A1C 6.5 % (<5.7)
== END 2024-02-18 16:34 | disposition home or self-care (01) ==
LOC: NCHCN 16:33
PROVIDERS: PCP Nurse Practitioner Family; Visit Provider Nurse Practitioner Family
DX: E11.9 Type 2 diabetes mellitus without complications (principal); Z01.818 Encounter for other preprocedural examination
CPT/HCPCS: 80053; 85027; 83036

== ENCOUNTER 2024-03-15 02:09 | Outpatient (CLI) | payer MEDICARE, MEDICAID, SELFPAY ==
--- NOTE | 2024-03-15 | DI.US_ITS ---
Exam(s) US NEEDLE LOCAL BREAST WO RAD EXAM: US NEEDLE LOCAL BREAST WO RAD CLINICAL HISTORY: RT BREAST MASS,ULTRASOUND GUIDED BX. Right Breast. Left Breast. TECHNIQUE: Ultrasound was provided for Dr. óLpez for guidance with performing right breast biopsy Site: right breast mass was identified, 2 o'clock position 15 cm from the nipple. COMPARISON: MG MG MAMMO DIAGNOSTIC UNI from 02/09/2024 US US BREAST RT LIMITED from 02/09/2024 FINDINGS: Please see procedure note for details IMPRESSION: Successful Ultrasound-guided Breast Biopsy.
== END 2024-03-15 02:29 ==
LOC: DI 02:09
PROVIDERS: PCP Nurse Practitioner Family; Visit Provider Surgery
DX: N64.1 Fat necrosis of breast (principal); N63.10 Unspecified lump in the right breast, unspecified quadrant
CPT/HCPCS: 19083; 76942

== ENCOUNTER 2024-03-15 12:47 | Outpatient (REF) | payer MEDICARE, MEDICAID, SELFPAY ==
--- NOTE | 2024-03-15 08:45 | BREAST_PTH ---
PATIENT: Kristie Carson LOC: [facility] U#:[id number] AGE/SX: 63/F ROOM: RE03/15/[address]: Tracy Louie : 1960 BED: DIS: 03/15/2024 SPEC #: [id number] RECD: 03/15/24 13:02 STATUS: TRE RESg #: [id number] JANIS: 03/15/24 08:[address]: Tracy Louie DEPT: Surgical Specimen RECD BY: Florencia Pearl ENTERED: 03/15/24 13:03 SP TYPE: Breast OTHR DR: Binta Moreno Tissues: 1 - BREAST BX NEEDLE Procedures: GROSS AND MICRO LEVEL 4 Comments: [id number]
== END 2024-03-15 12:48 | disposition home or self-care (01) ==
LOC: LBN 12:47
PROVIDERS: PCP Nurse Practitioner Family; Visit Provider Surgery
DX: L85.8 Other specified epidermal thickening (principal)
CPT/HCPCS: 88305

== ENCOUNTER → 2024-03-25 15:26 | Outpatient (BNVA) | payer MEDICARE, MEDICAID, SELFPAY | PROVIDERS: PCP Nurse Practitioner Family; Referring Provider Nurse Practitioner Family; Visit Provider Surgery | DX: F44.7 Conversion disorder with mixed symptom presentation (principal); G62.9 Polyneuropathy, unspecified; I25.10 Atherosclerotic heart disease of native coronary artery without angina pectoris; I77.1 Stricture of artery; E11.9 Type 2 diabetes mellitus without complications; E66.01 Morbid (severe) obesity due to excess calories; G47.33 Obstructive sleep apnea (adult) (pediatric); Z85.3 Personal history of malignant neoplasm of breast; Z86.59 Personal history of other mental and behavioral disorders | CPT/HCPCS: 99442 ==

== ENCOUNTER 2024-04-16 01:39 | Outpatient (CLI) | payer MEDICARE, MEDICAID, SELFPAY ==
[2024-04-16] MEDS: Inhaler, Assist Device 1 EACH MC (11:11)
[2024-04-16] MEDS: Levalbuterol HFA 15 GM INH 4 PUFF IH (11:11)
--- NOTE | 2024-04-26 09:49 | W.PFT ---
Date of service: 04/16/24 Time of Service: 10:06 Pulmonary Function Test Result Indications: Dyspnea Interpretation Spirometry: No airflow limitation. No bronchodilator response. Lung Volumes: Normal lung volumes Diffusion Capacity: Normal diffusion Airway Pressure: Normal airways resistance Impression Normal pulmonary function testing Clinical Correlation therefore is recommended.
== END 2024-04-16 01:40 | disposition home or self-care (01) ==
LOC: RT 01:39
PROVIDERS: PCP Nurse Practitioner Family; Visit Provider Student in an Organized Health Care Education/Training Program
DX: R06.00 Dyspnea, unspecified (principal)
CPT/HCPCS: 94060; 94726; 94729

== ENCOUNTER → 2024-05-21 12:24 | Outpatient (BNVA) | payer MEDICARE, MEDICAID, SELFPAY | PROVIDERS: PCP Nurse Practitioner Family; Referring Provider Nurse Practitioner Family; Visit Provider Physical Therapy Assistant | DX: N64.89 Other specified disorders of breast (principal) | CPT/HCPCS: 99213 ==

== ENCOUNTER → 2024-05-28 11:33 | Outpatient (BNVA) | payer MEDICARE, MEDICAID, SELFPAY | PROVIDERS: PCP Nurse Practitioner Family; Referring Provider Nurse Practitioner Family; Visit Provider Physical Therapy Assistant | DX: N64.89 Other specified disorders of breast (principal) | CPT/HCPCS: 99213 ==

== ENCOUNTER 2024-06-22 03:02 | Outpatient (CLI) | payer MEDICARE, MEDICAID, SELFPAY ==
[2024-06-22 11:56] LABS: Hemoglobin A1C 6.5 % (<5.7)
[2024-06-22 12:01] LABS: ALT 26 U/L (14-59); AST 17 U/L (15-37); Albumin 3.5 g/dL (3.4-5.0); Alkaline Phosphatase 178 U/L (46-116); Anion Gap 7.4 mmol/L (3-11); BUN 25 mg/dL (7-18); Bilirubin, Total 0.2 mg/dL (0.2-1.0); CO2 33.6 mmol/L (21.0-32.0); CREATININE 1.1 mg/dL (0.55-1.02); Calcium 9.5 mg/dL (8.5-10.1); Chloride 104 mmol/L (98-107); Estimated GFR 56.81 (mL/min/1.73m2); Glucose 106 mg/dL (74-106); Potassium 3.4 mmol/L (3.5-5.1); Sodium 145 mmol/L (136-145); Total Protein 8.1 g/dL (6.4-8.2)
[2024-06-23 22:07] LABS: Fructosamine 214 mcmol/L (200 - 285)
== END 2024-06-22 03:03 | disposition home or self-care (01) ==
PROVIDERS: PCP Nurse Practitioner Family; Visit Provider Internal Medicine Endocrinology, Diabetes & Metabolism
DX: E11.65 Type 2 diabetes mellitus with hyperglycemia (principal); N18.31 Chronic kidney disease, stage 3a; E11.42 Type 2 diabetes mellitus with diabetic polyneuropathy; E66.01 Morbid (severe) obesity due to excess calories
CPT/HCPCS: 36415; 80053; 82985; 83036

== ENCOUNTER → 2024-06-28 12:22 | Outpatient (BNVA) | payer MEDICARE, MEDICAID, SELFPAY | PROVIDERS: PCP Nurse Practitioner Family; Referring Provider Nurse Practitioner Family; Visit Provider Psychiatry & Neurology Neurology | DX: G43.009 Migraine without aura, not intractable, without status migrainosus (principal); G62.9 Polyneuropathy, unspecified; G89.29 Other chronic pain; I10 Essential (primary) hypertension; E11.9 Type 2 diabetes mellitus without complications; I50.9 Heart failure, unspecified; I25.2 Old myocardial infarction | CPT/HCPCS: 99214 ==

== ENCOUNTER → 2024-07-02 09:40 | Outpatient (BNVA) | payer MEDICARE, MEDICAID, SELFPAY | PROVIDERS: PCP Nurse Practitioner Family; Referring Provider Nurse Practitioner Family; Visit Provider Physical Therapy Assistant | DX: Z51.89 Encounter for other specified aftercare (principal); L76.32 Postprocedural hematoma of skin and subcutaneous tissue following other procedure | CPT/HCPCS: 99212 ==

== ENCOUNTER 2024-07-20 09:58 | Outpatient (CLI) | payer MEDICARE, MEDICAID, SELFPAY ==
[2024-07-20 10:02] LABS: Calculated LDL 60 mg/dL (<100); Cholesterol 162 mg/dL (<200); HDL Cholesterol 46 mg/dL (>or=50); Triglyceride 283 mg/dL (<150)
[2024-07-20 10:11] LABS: COMMENT (LAB VIEW ONLY) < 13.00 mg/dL
== END 2024-07-20 09:59 | disposition home or self-care (01) ==
LOC: LBO 09:58
PROVIDERS: PCP Nurse Practitioner Family; Visit Provider Nurse Practitioner Family
DX: E78.5 Hyperlipidemia, unspecified (principal)
CPT/HCPCS: 36415; 80061; 82043; 82570; 83655

== ENCOUNTER → 2024-08-31 13:43 | Outpatient (BNVA) | payer MEDICARE, MEDICAID, SELFPAY | PROVIDERS: PCP Nurse Practitioner Family; Referring Provider Nurse Practitioner Family; Visit Provider Psychiatry & Neurology Neurology | DX: G43.009 Migraine without aura, not intractable, without status migrainosus (principal); G62.9 Polyneuropathy, unspecified; G89.29 Other chronic pain; R40.4 Transient alteration of awareness; F44.7 Conversion disorder with mixed symptom presentation; H47.20 Unspecified optic atrophy; I10 Essential (primary) hypertension; N18.9 Chronic kidney disease, unspecified | CPT/HCPCS: 99214 ==

== ENCOUNTER 2024-11-30 02:08 | Outpatient (CLI) | payer MEDICARE, MEDICAID, SELFPAY ==
[2024-11-30 11:47] LABS: Estimated GFR 72.28 (mL/min/1.73m2)
== END 2024-11-30 02:09 | disposition home or self-care (01) ==
LOC: LBO 02:08
PROVIDERS: PCP Nurse Practitioner Family; Visit Provider Student in an Organized Health Care Education/Training Program
DX: R31.0 Gross hematuria (principal); Z77.011 Contact with and (suspected) exposure to lead
CPT/HCPCS: 36415; 82565; 83655

== ENCOUNTER 2024-12-27 01:43 | Outpatient (CLI) | payer MEDICARE, MEDICAID, SELFPAY ==
[2024-12-27 09:33] LABS: Hemoglobin A1C 6.5 % (<5.7)
[2024-12-27 10:52] LABS: Anion Gap 9.5 mmol/L (3-11); CO2 25.5 mmol/L (21.0-32.0); Chloride 105 mmol/L (98-107); Potassium 4.2 mmol/L (3.5-5.1); Sodium 140 mmol/L (136-145)
[2024-12-27 11:25] LABS: BUN 14 mg/dL (7-18); Calcium 9.0 mg/dL (8.5-10.1); Estimated GFR 56.46 (mL/min/1.73m2); Glucose 132 mg/dL (74-106)
[2024-12-27 11:47] LABS: COMMENT (LAB VIEW ONLY) 81.44 mg/dL; Microalb ug/mg Crea 6.1 ug/mg Cr
== END 2024-12-27 01:44 | disposition home or self-care (01) ==
LOC: LBO 01:43
PROVIDERS: PCP Nurse Practitioner Family; Visit Provider Internal Medicine Endocrinology, Diabetes & Metabolism
DX: E11.21 Type 2 diabetes mellitus with diabetic nephropathy (principal)
CPT/HCPCS: 36415; 80048; 82043; 82570; 83036

== ENCOUNTER → 2025-03-28 00:12 | Outpatient (CLI) | payer MEDICARE, MEDICAID, SELFPAY ==
--- NOTE | 2025-03-28 | DI.MAMMO_ITS ---
Exam(s) MG MAMMO SCREENING 60 MIN DUR EXAM: MG MAMMO SCREENING 60 MIN DUR CLINICAL HISTORY: SCREENING, Z12.31,H/O BREAST CA TECHNIQUE: Bilateral full field digital CC and MLO mammographic images were obtained with 3D tomosynthesis and utilizing computer aided detection (CAD). COMPARISON: Comparison is made with prior examinations. FINDINGS: Masses/Architectural Distortion: No suspicious masses or areas of architectural distortion are present. There has been interval decrease in size of the nodule seen in the upper inner quadrant of the right breast since the prior examination. There are postsurgical changes of a right lumpectomy. Microcalcifications: No suspicious pleomorphic-type are seen. Skin Thickening/Nipple Retraction: None. IMPRESSION: 1. No significant interval change with no specific features of malignancy noted. 2. Unless there is more urgent need, screening mammography is recommended, as per [place] [employer] guidelines. 3. The findings were discussed with the patient on the date of the examination. BI-RADS Category 2 - Benign Findings Breast Density - Category B - There are scattered areas of fibroglandular density. Breast density Category C or D implies that the patient has dense breast tissue. Dense breast tissue can make it harder to find cancer on a mammogram. Dense breast tissue is also associated with an increased risk of breast cancer. This information about the result of the mammogram report was provided to the patient to raise their awareness. Use this report when you speak with the patient about their risks for breast cancer, which includes their family history. At that time, you may recommend additional screening tests (Ultrasound or MRI) as these tests may add significant information. A negative radiographic report should not delay biopsy if a dominant or clinically suspicious mass is present. Up to ten percent of cancers are not identified on mammography. A negative report may reinforce clinical impression. Adenosis and dense breasts may obscure an underlying neoplasm. False positive reports average 6 to 10%. Patient will receive a letter notifying them of these results.
== END ==
LOC: DI 00:12
PROVIDERS: PCP Nurse Practitioner Family; Visit Provider Nurse Practitioner Family
DX: Z12.31 Encounter for screening mammogram for malignant neoplasm of breast (principal); Z85.3 Personal history of malignant neoplasm of breast
CPT/HCPCS: 77063; 77067